=== PATIENT | female | born 1955 | race Caucasian/White ===

== ENCOUNTER → 2017-01-04 | Outpatient (CLI) | payer BC ==
--- NOTE | 2017-01-04 16:07 | BD ---
EXAMINATION TYPE: MG DEXA axial skeleton. DATE OF EXAM: 01/04/2017 8:37 AM CLINICAL HISTORY: 61-year-old female postmenopausal screening Height: 60.5 Weight: 160 FRAX RISK QUESTIONS: Alcohol (3 or more units per day): no Family History (Parent hip fracture): no Glucocorticoids (More than 3mos): no (Ex: prednisone, prednisolone, methylprednisolone, dexamethasone, and hydrocortisone). History of Fracture in Adulthood: no Secondary Osteoporosis: 1. Type 1 Diabetes: no 2. Hyperthyroidism: no 3. Menopause before 45: no 4. Malnutrition: no 5. Chronic liver disease: no Rheumatoid Arthritis: no Current Tobacco Use: no RISK FACTORS HISTORY OF: Family History of Osteoporosis: no Drink Alcohol: occasionally Active: yes Diet low in dairy products/other sources of calcium: no Postmenopausal woman: yes Take estrogen and/or progesterone medications: not now How long: Hormonal Contraceptives about 8 years; Estrogen starting age 49 for over 10 years..just re cently stopped Lost more than 2 inches in height since high school: no Frequent falls: no Poor Health: no Hyperparathyroidism: no Adrenal Insufficiency: no MEDICATIONS: Prednisone or other steroids: no Thyroid Medications: no Osteoporosis Medications: no EXAM MEASUREMENTS: Bone mineral densitometry was performed using the [employer] System. Bone mineral density as measured about the Lumbar spine is: ----- L1-L4(G/cm2): 1.077 T Score Values are as follows: ----- L2: -0.6 ----- L3: 0.5 ----- L4: -0.1 ----- L1-L4: -0.2 Bone mineral density BASELINE Bone mineral density about the R hip (g/cm2): 0.937 Bone mineral density about the L hip (g/cm2): 0.957 T Score values are as follows: -----R Neck: -0.7 -----L Neck: -0.6 -----R Intertrochanter: 0.2 -----L Intertrochanter: 0.5 Bone mineral density BASELINE IMPRESSION: Normal bone mineral density. Rescreen in 5 years. NOTE: T-SCORE=SD OF THE YOUNG ADULT MEAN.
--- NOTE | 2017-01-05 09:59 | MM ---
Reason for exam: screening (asymptomatic). Last mammogram was performed 1 year and 1 month ago. History: Patient is postmenopausal. Family history of premenopausal breast cancer in sister at age 44. Excisional biopsy of the right breast, October 2007. 2 implant removals of both breasts, 2004. Benign excisional biopsy of the right breast. Took hormonal contraceptives for 7 years beginning at age 17. Taking estrogen for 2 years beginning at age 49. Physical Findings: A clinical breast exam by your physician is recommended on an annual basis and results should be correlated with mammographic findings. MG Screening Mammo w CAD Bilateral CC and MLO view(s) were taken. Prior study comparison: December 07, 2015, bilateral MG screening mammo w CAD. February 27, 2015, left breast MG diagnostic mammo LT w CAD. The breast tissue is heterogeneously dense. This may lower the sensitivity of mammography. There is chronic nodularity bilaterally. There is no dominant lesion. No significant changes when compared with prior studies. ASSESSMENT: Benign, BI-RAD 2 RECOMMENDATION: Routine screening mammogram of both breasts in 1 year.
== END | disposition home or self-care (01) ==
LOC: RADMAMWWP 08:33
PROVIDERS: ATTEND Obstetrics & Gynecology
DX: Z12.31 Encounter for screening mammogram for malignant neoplasm of breast (principal); Z78.0 Asymptomatic menopausal state
CPT/HCPCS: 77080; G0202

== ENCOUNTER → 2018-02-12 | Outpatient (CLI) | payer BC ==
--- NOTE | 2018-02-13 10:15 | MM ---
Reason for exam: screening (asymptomatic). Last mammogram was performed 1 year and 1 month ago. History: Patient is postmenopausal. Family history of premenopausal breast cancer in sister at age 44. Excisional biopsy of the right breast, October 2007. 2 implant removals of both breasts, 2004. Benign excisional biopsy of the right breast. Took hormonal contraceptives for 7 years beginning at age 17. Taking estrogen for 2 years beginning at age 49. Physical Findings: A clinical breast exam by your physician is recommended on an annual basis and results should be correlated with mammographic findings. MG 3D Screening Mammo W/Cad Bilateral CC and MLO view(s) were taken. Prior study comparison: January 04, 2017, bilateral MG screening mammo w CAD. December 07, 2015, bilateral MG screening mammo w CAD. There are scattered fibroglandular densities. No significant changes when compared with prior studies. ASSESSMENT: Negative, BI-RAD 1 RECOMMENDATION: Routine screening mammogram of both breasts in 1 year.
== END | disposition home or self-care (01) ==
LOC: RADMAMWWP 07:42
PROVIDERS: ATTEND Obstetrics & Gynecology
DX: Z12.31 Encounter for screening mammogram for malignant neoplasm of breast (principal)
CPT/HCPCS: 77063; 77067

== ENCOUNTER → 2018-10-22 | Outpatient (CLI) | payer BC ==
[2018-10-22 13:39] LABS: HCT 45.7 % (34.0-46.0); HGB 15.2 gm/dL (11.4-16.0); MCH 31.2 pg (25.0-35.0); MCHC 33.3 g/dL (31.0-37.0); MCV 93.7 fL (80.0-100.0); Mean Platelet Volume 6.3; Platelet Count 263 k/uL (150-450); RBC 4.87 m/uL (3.80-5.40); RDW 13.1 % (11.5-15.5); WBC 7.6 k/uL (3.8-10.6)
[2018-10-22 14:48] LABS: Erythrocyte Sedimentation Rate 7 mm/hr (0-20)
[2018-10-22 17:55] LABS: ALT 31 U/L (8-44); AST 30 U/L (13-35); Albumin/Globulin Ratio 1.96 (1.20-2.10); Alkaline Phosphatase 70 U/L (41-126); C Reactive Protein <0.4 mg/dL (0.0-0.8); Calcium 9.9 mg/dL (8.7-10.3); Carbon Dioxide 23.8 mmol/L (21.6-31.8); Chloride 107 mmol/L (96-109); Globulin 2.3 g/dL (1.6-3.3); Glucose 93 mg/dL (70-110); Potassium 4.7 mmol/L (3.5-5.5); Sodium 139 mmol/L (135-145); Total Bilirubin 0.3 mg/dL (0.3-1.2); Total Protein 6.8 g/dL (6.2-8.2)
[2018-10-22 18:07] LABS: Gliadin AB IgA, Unit <0.2 U/mL
== END | disposition home or self-care (01) ==
LOC: LABWHC1 11:47
PROVIDERS: ATTEND Internal Medicine Gastroenterology
DX: K52.9 Noninfective gastroenteritis and colitis, unspecified (principal)
CPT/HCPCS: 36415; 80053; 83516; 85027; 85652; 86140

== ENCOUNTER 2018-10-31 10:37 | Day surgery (SDC) | payer BC ==
[2018-10-29 15:08] VITALS: BMI 32.8
[~2018-10-31 10:37] MED LIST: LACTATED RINGERS 1,000 ML IV SCH; LIDOCAINE 1% 20 ML VIAL (10MG/ML) FOR IV START INTRADERMA PRN
[2018-10-31 11:12] VITALS: RESP 16; TEMP 98.5
[2018-10-31] MEDS ORDERED: ONDANSETRON 4 MG/2 ML VIAL IVP ONE (11:25)
[2018-10-31] MEDS ORDERED: PROPOFOL 10 MG/ML 20 ML VIAL IV ONE (12:08)
[2018-10-31] MEDS ORDERED: fentaNYL (PF) 50 MCG/ML 2 ML AMP ONE (12:08)
[2018-10-31] MEDS ORDERED: MIDAZOLAM 2 MG/2 ML VIAL ONE (12:08)
--- NOTE | 2018-10-31 12:15 | P.PCN ---
Date of Procedure: 10/31/18 Procedure(s) Performed: Brief history: Patient is a pleasant 63-year-old pleasant white female, scheduled for an elective upper endoscopy as well as colonoscopy as a part of evaluation of abdominal pain and chronic diarrhea for the last 2 months duration. She has bowel movements anywhere from 8-10 a day which are loose to watery in consistency but no blood or mucus in the stool. Stool studies were negative. Procedure performed: Esophagogastroduodenoscopy with biopsy Colonoscopy with biopsy Preoperative diagnosis: Abdominal pain and chronic diarrhea Anesthesia: MAC Procedure: After informed consent was obtained from the patient was brought into the endoscopy unit and IV sedation was administered by anesthesia under continuous monitoring. Initially upper endoscopy was done. The Olympus GF 160 video endoscope was inserted inserted into the mouth and esophagus intubated without any difficulty and was gradually advanced into the stomach and duodenum and carefully examined. The bulb and second part of the duodenum appeared normal. Biopsies were done from the duodenum to rule out celiac disease. The scope was then withdrawn into the stomach adequately insufflated with air and upon careful examination the antrum had mild gastritis and biopsies were also done from this area. The body, cardia and fundus appeared normal. The scope was then withdrawn into the esophagus. The GE junction was located at 40 cm to the incisors. It appeared regular with no erythema erosions or ulcerations. Rest of the esophagus appeared normal. Patient tolerated the procedure well. At this time the patient continued to remain sedation. Initial digital rectal examination was normal. Olympus CF 160 video colonoscope was then inserted into the rectum and gradually advanced to the cecum without any difficulty. Careful examination was performed as the scope was gradually being withdrawn. The prep was excellent. The cecum, ascending colon, transverse colon, descending colon, sigmoid colon and rectum appeared normal. biopsies were done from ascending and ascending colon to rule out microscopic/collagenous colitis. Retroflexion was performed in the rectum and no lesions were noted. Patient tolerated the procedure well. Impression: 1. Upper endoscopy revealed mild gastritis and a small sliding Hiatal hernia. 2. Colonoscopy was within normal limits with no evidence of colitis or colorectal neoplasia. Recommendations: Findings of this examination were discussed with the patient as well as her family. She was advised to follow with the biopsy results and she'll be seen in office in 2 weeks.
[2018-10-31 13:01] VITALS: BP 123/82; PULSE 72
== END 2018-10-31 13:15 | disposition home or self-care (01) ==
LOC: ORWHC2ENDO 10:37
PROVIDERS: ATTEND Internal Medicine Gastroenterology
DX: K29.50 Unspecified chronic gastritis without bleeding (principal); K52.832 Lymphocytic colitis; K44.9 Diaphragmatic hernia without obstruction or gangrene; K57.90 Diverticulosis of intestine, part unspecified, without perforation or abscess without bleeding; F32.9 Major depressive disorder, single episode, unspecified; F41.9 Anxiety disorder, unspecified; Z79.899 Other long term (current) drug therapy
CPT/HCPCS: 88305; 45380; 43239; J2250; J2405; J3010; J2704

== ENCOUNTER → 2019-01-08 | Outpatient (CLI) | payer BC ==
--- NOTE | 2019-01-08 13:18 | XR ---
EXAMINATION TYPE: XR knee complete bilateral DATE OF EXAM: 01/08/2019 CLINICAL HISTORY: Bilateral knee and back pain TECHNIQUE: Three views of the both knees were obtained. COMPARISON: None. FINDINGS: There is no acute fracture/dislocation evident in either knee. The tri-compartment joint spaces appear to demonstrate very small marginal osteophytes. Very minimal medial tibial plateau scle rosis is seen bilaterally. No suprapatellar joint effusion within either knee. The overlying soft ti ssue appears unremarkable. IMPRESSION: There is no acute fracture or dislocation in the either knee. Mild tricompartmental arth rosis bilaterally.
--- NOTE | 2019-01-09 21:40 | MR ---
EXAMINATION TYPE: MR lumbar spine wo con DATE OF EXAM: 01/08/2019 COMPARISON: None HISTORY: Low back pain, M 54.16 radiculopathy, M 54.56 lumbar pain CONTRAST: 0 mL intravenous Gadavist. TECHNIQUE: Multiplanar, multisequence images of the lumbar spine were acquired. FINDINGS: L5-S1: There is mild disc bulging with anterior thecal sac contact. No spinal canal stenosis is prese nt. There is moderate left foraminal stenosis. L4-L5: No significant disc bulge or disc herniation. No spinal canal stenosis. Facet hypertrophy is present with posterior lateral thecal sac compression. L3-L4: No significant disc bulge or disc herniation. No spinal canal stenosis. No foraminal stenosi s. Without facet hypertrophy is present. L2-L3: No significant disc bulge or disc herniation. No spinal canal stenosis. No foraminal stenosi s. Mild facet hypertrophy is present. L1-L2: No significant disc bulge or disc herniation. No spinal canal stenosis. No foraminal stenosi s. T12-L1: No significant disc bulge or disc herniation. No spinal canal stenosis. No foraminal stenos is. Spinal cord terminates L1 level. Disc desiccation is present through the lumbar spine. IMPRESSION: 1. Facet hypertrophy with mild posterior lateral thecal sac compression L2-3 through L5-S1. This is g reatest at L4-5. 2. Mild disc bulging L5-S1 with minimal anterior thecal sac compression. 3. Left moderate foraminal stenosis due to disc bulging and facet hypertrophy at L5-S1. Correlate wit h the radicular symptoms.
== END | disposition home or self-care (01) ==
LOC: RADMRIMAIN 10:16
PROVIDERS: ATTEND Family Medicine
DX: M17.11 Unilateral primary osteoarthritis, right knee (principal); M17.12 Unilateral primary osteoarthritis, left knee; M48.07 Spinal stenosis, lumbosacral region; M51.17 Intervertebral disc disorders with radiculopathy, lumbosacral region; M46.97 Unspecified inflammatory spondylopathy, lumbosacral region
CPT/HCPCS: 72148

== ENCOUNTER → 2019-02-15 | Outpatient (CLI) | payer BC ==
--- NOTE | 2019-02-19 11:43 | MM ---
Reason for exam: screening (asymptomatic). Last mammogram was performed 1 year ago. History: Patient is postmenopausal. Family history of premenopausal breast cancer in sister at age 44. Excisional biopsy of the right breast, October 2007. 2 implant removals of both breasts, 2004. Benign excisional biopsy of the right breast. Took hormonal contraceptives for 7 years beginning at age 17. Taking estrogen for 2 years beginning at age 49. Physical Findings: A clinical breast exam by your physician is recommended on an annual basis and results should be correlated with mammographic findings. MG 3D Screening Mammo W/Cad Bilateral CC and MLO view(s) were taken. Prior study comparison: February 12, 2018, bilateral MG 3d screening mammo w/cad. January 04, 2017, bilateral MG screening mammo w CAD. The breast tissue is heterogeneously dense. This may lower the sensitivity of mammography. Finding #1: There is stable architectural distortion in the posterior position of the left breast consistent with known implant. Finding #2: There are typically benign round calcifications in both breasts. There is a chronic nodularity bilaterally. There is no discrete abnormality. ASSESSMENT: Benign, BI-RAD 2 RECOMMENDATION: Routine screening mammogram of both breasts in 1 year.
== END | disposition home or self-care (01) ==
LOC: RADMAMWWP 06:58
PROVIDERS: ATTEND Family Medicine
DX: Z12.31 Encounter for screening mammogram for malignant neoplasm of breast (principal)
CPT/HCPCS: 77063; 77067

== ENCOUNTER 2019-03-28 08:25 | Emergency (ER) | payer BC ==
[2019-03-28 08:35] VITALS: TEMP 97.7
[2019-03-28] MEDS ORDERED: SODIUM CHLORIDE 0.9% 1,000 ML IV STA (08:48)
[2019-03-28] MEDS ORDERED: ONDANSETRON 4 MG/2 ML VIAL IVP STA ×2 (08:48→10:10)
[2019-03-28] MEDS ORDERED: KETOROLAC 30 MG/ML 1 ML VIAL IVP STA (09:06)
[2019-03-28 09:18] LABS: WBC 9.9 k/uL (3.8-10.6)
[2019-03-28 09:19] LABS: Basophils # (A) 0.1 k/uL (0-0.2); Basophils % (A) 1 %; Eosinophils # (A) 0.1 k/uL (0-0.7); Eosinophils % (A) 1 %; HCT 46.5 % (34.0-46.0); HGB 16.1 gm/dL (11.4-16.0); Lymphocytes # (A) 2.6 k/uL (1.0-4.8); Lymphocytes % (A) 26 %; MCH 31.5 pg (25.0-35.0); MCHC 34.6 g/dL (31.0-37.0); Mean Platelet Volume 7.1; Monocytes # (A) 0.5 k/uL (0-1.0); Monocytes % (A) 5 %; Neutrophils # (A) 6.4 k/uL (1.3-7.7); Neutrophils % (A) 65 %; Platelet Count 309 k/uL (150-450); RBC 5.11 m/uL (3.80-5.40); RDW 14.6 % (11.5-15.5)
--- NOTE | 2019-03-28 09:29 | ED ---
Abdominal Pain HPI - General Chief Complaint: Abdominal Pain Stated Complaint: abdominal pain Time Seen by Provider: 03/28/19 08:48 Source: patient, RN notes reviewed Mode of arrival: ambulatory Limitations: no limitations - History of Present Illness Initial Comments: 62-year-old female presents emergency Department chief complaint of abdominal pain, nausea vomiting diarrhea. Patient states symptoms started 2 days ago. Patient states the pain is new and worsening. Patient states she does wax and wane primarily the right lower side. Patient had bowel resection due to diverticulitis in the past. Patient denies any fevers or chills. Patient den ies any sick contacts. Patient states that she has no problem urinating she denies any chest pain, shortness breath, headache or dizziness. She states when the pain is present nothing makes it feel better or worse. - Related Data Home Medications Medication Instructions Recorded Confirmed Estrogen,Velvet/Me-Testosterone 1 tab PO Q48H 01/10/15 03/28/19 [Estrogen-Methyltestos H.s. Tab] ALPRAZolam [Xanax] 0.5 mg PO BID PRN 01/26/15 03/28/19 L.acidoph,Paracasei, B.lactis 1 cap PO DAILY 10/29/18 03/28/19 [Probiotic] Multivit with Calcium,Iron,Min 1 tab PO DAILY 10/29/18 03/28/19 [Women's Multivitamin] Hope-3 Fatty Acids/Fish Oil [Fish 1 cap PO DAILY 10/29/18 03/28/19 Oil 1,000 mg Softgel] Sertraline [Zoloft] 100 mg PO DAILY 10/29/18 03/28/19 Butalb/APAP/Caff 50-325-40Mg 1 tab PO Q4H PRN 03/28/19 03/28/19 [Fioricet 50-325-40] Zolpidem [Ambien] 10 mg PO HS PRN 03/28/19 03/28/19 Previous Rx's Medication Instructions Recorded Hydrocodone/Acetaminophen [Addison 1 tab PO Q6HR PRN #12 tab 03/28/19 5-325] Ibuprofen [Motrin] 600 mg PO Q8HR PRN #30 tab 03/28/19 Ondansetron Odt [Zofran Odt] 4 mg PO Q8HR PRN #10 tab 03/28/19 Tamsulosin [Flomax] 0.4 mg PO DAILY #7 cap 03/28/19 Allergies Allergy/AdvReac Type Severity Reaction Status Date / Time No Known Allergies Allergy Verified 03/28/19 09:23 Review of Systems ROS Statement: Those systems with pertinent positive or pertinent negative responses have been documented in the HPI. ROS Other: All systems not noted in ROS Statement are negative. Past Medical History Past Medical History: Fibromyalgia Additional Past Medical History / Comment(s): frequent diarrhea since Aug. @least 20-25x/day History of Any Multi-Drug Resistant Organisms: None Reported Past Surgical History: Appendectomy, Bladder Surgery, Bowel Resection, Breast Surgery, Hysterectomy, Orthopedic Surgery, Tonsillectomy Additional Past Surgical History / Comment(s): arthroscopy right knee, breast implants & then removed, barby. foot surg. Past Anesthesia/Blood Transfusion Reactions: Postoperative Nausea & Vomiting (PONV) Past Psychological History: Anxiety Smoking Status: Former smoker Past Alcohol Use History: None Reported Past Drug Use History: None Reported - Past Family History Father Family Medical History: Cancer General Exam Limitations: no limitations General appearance: alert, in no apparent distress Head exam: Present: atraumatic, normocephalic, normal inspection Neck exam: Present: normal inspection, full ROM. Absent: tenderness, meningismus, lymphadenopathy Respiratory exam: Present: normal lung sounds bilaterally. Absent: respiratory distress, wheezes, rales, rhonchi, stridor Cardiovascular Exam: Present: regular rate, normal rhythm, normal heart sounds. Absent: systolic murmur, diastolic murmur, rubs, gallop, clicks GI/Abdominal exam: Present: soft, tenderness (Mild diffuse with moderate right lower), normal bowel sounds. Absent: distended, guarding, rebound, rigid Back exam: Absent: CVA tenderness (R), CVA tenderness (L) Neurological exam: Present: alert, oriented X3, CN II-XII intact Skin exam: Present: warm, dry, intact, normal color. Absent: rash Course Vital Signs 03/28/19 08:33 Temperature 97.7 F Pulse Rate 71 Respiratory 16 Rate Blood Pressure 176/101 O2 Sat by Pulse 96 Oximetry Medical Decision Making - Medical Decision Making 63-year-old female presented for abdominal pain, right flank pain. Patient's found to have 3 mm UVJ stone. Patient improved at IV fluids and pain meds. Patient will be discharged this time return parameters were discussed. - Lab Data Result diagrams: 03/28/19 09:00 03/28/19 09:00 Lab Results 03/28/19 03/28/19 03/28/19 Range/Units 09:00 09:00 09:00 WBC 9.9 (3.8-10.6) k/uL RBC 5.11 (3.80-5.40) m/uL Hgb 16.1 H (11.4-16.0) gm/dL Hct 46.5 H (34.0-46.0) % MCV 91.0 (80.0-100.0) fL MCH 31.5 (25.0-35.0) pg MCHC 34.6 (31.0-37.0) g/dL RDW 14.6 (11.5-15.5) % Plt Count 309 (150-450) k/uL Neutrophils % 65 % Lymphocytes % 26 % Monocytes % 5 % Eosinophils % 1 % Basophils % 1 % Neutrophils # 6.4 (1.3-7.7) k/uL Lymphocytes # 2.6 (1.0-4.8) k/uL Monocytes # 0.5 (0-1.0) k/uL Eosinophils # 0.1 (0-0.7) k/uL Basophils # 0.1 (0-0.2) k/uL Sodium 141 (137-145) mmol/L Potassium 4.1 (3.5-5.1) mmol/L Chloride 107 (98-107) mmol/L Carbon Dioxide 21 L (22-30) mmol/L Anion Gap 13 mmol/L BUN 18 H (7-17) mg/dL Creatinine 1.07 H (0.52-1.04) mg/dL Est GFR (CKD-EPI)AfAm 64 (>60 ml/min/1.73 sqM) Est GFR (CKD-EPI)NonAf 56 (>60 ml/min/1.73 sqM) Glucose 124 H (74-99) mg/dL Plasma Lactic Acid Cameron 1.6 (0.7-2.0) mmol/L Calcium 10.3 H (8.4-10.2) mg/dL Total Bilirubin 0.6 (0.2-1.3) mg/dL AST 30 (14-36) U/L ALT 27 (9-52) U/L Alkaline Phosphatase 77 (38-126) U/L Total Protein 8.0 (6.3-8.2) g/dL Albumin 4.9 (3.5-5.0) g/dL Amylase 85 (30-110) U/L Lipase 70 (23-300) U/L Urine Color Urine Appearance (Clear) Urine pH (5.0-8.0) Ur Specific [place] (1.001-1.035) Urine Protein (Negative) Urine Glucose (UA) (Negative) Urine Ketones (Negative) Urine Blood (Negative) Urine Nitrite (Negative) Urine Bilirubin (Negative) Urine Urobilinogen (<2.0) mg/dL Ur Leukocyte Esterase (Negative) Urine RBC (0-5) /hpf Urine WBC (0-5) /hpf Ur Squamous Epith Cells (0-4) /hpf Calcium Oxalate Crystal (None) /hpf Urine Bacteria (None) /hpf Urine Mucus (None) /hpf 03/28/19 Range/Units 11:23 WBC (3.8-10.6) k/uL RBC (3.80-5.40) m/uL Hgb (11.4-16.0) gm/dL Hct (34.0-46.0) % MCV (80.0-100.0) fL MCH (25.0-35.0) pg MCHC (31.0-37.0) g/dL RDW (11.5-15.5) % Plt Count (150-450) k/uL Neutrophils % % Lymphocytes % % Monocytes % % Eosinophils % % Basophils % % Neutrophils # (1.3-7.7) k/uL Lymphocytes # (1.0-4.8) k/uL Monocytes # (0-1.0) k/uL Eosinophils # (0-0.7) k/uL Basophils # (0-0.2) k/uL Sodium (137-145) mmol/L Potassium (3.5-5.1) mmol/L Chloride (98-107) mmol/L Carbon Dioxide (22-30) mmol/L Anion Gap mmol/L BUN (7-17) mg/dL Creatinine (0.52-1.04) mg/dL Est GFR (CKD-EPI)AfAm (>60 ml/min/1.73 sqM) Est GFR (CKD-EPI)NonAf (>60 ml/min/1.73 sqM) Glucose (74-99) mg/dL Plasma Lactic Acid Cameron (0.7-2.0) mmol/L Calcium (8.4-10.2) mg/dL Total Bilirubin (0.2-1.3) mg/dL AST (14-36) U/L ALT (9-52) U/L Alkaline Phosphatase (38-126) U/L Total Protein (6.3-8.2) g/dL Albumin (3.5-5.0) g/dL Amylase (30-110) U/L Lipase (23-300) U/L Urine Color Yellow Urine Appearance Cloudy H (Clear) Urine pH 5.5 (5.0-8.0) Ur Specific [place] 1.037 H (1.001-1.035) Urine Protein Trace H (Negative) Urine Glucose (UA) Negative (Negative) Urine Ketones 1+ H (Negative) Urine Blood Moderate H (Negative) Urine Nitrite Negative (Negative) Urine Bilirubin Negative (Negative) Urine Urobilinogen <2.0 (<2.0) mg/dL Ur Leukocyte Esterase Negative (Negative) Urine RBC 58 H (0-5) /hpf Urine WBC 5 (0-5) /hpf Ur Squamous Epith Cells 12 H (0-4) /hpf Calcium Oxalate Crystal Occasional H (None) /hpf Urine Bacteria Rare H (None) /hpf Urine Mucus Moderate H (None) /hpf Disposition Clinical Impression: Ureteral calculi, Nausea & vomiting Disposition: HOME SELF-CARE Condition: Stable Instructions (If sedation given, give patient instructions): Kidney Stones (ED) Additional Instructions: Please return to the Emergency Department if symptoms worsen or any other concerns. Prescriptions: Tamsulosin [Flomax] 0.4 mg PO DAILY #7 cap Ibuprofen [Motrin] 600 mg PO Q8HR PRN #30 tab PRN Reason: Pain Hydrocodone/Acetaminophen [Addison 5-325] 1 tab PO Q6HR PRN #12 tab PRN Reason: Pain Ondansetron Odt [Zofran Odt] 4 mg PO Q8HR PRN #10 tab PRN Reason: Nausea Is patient prescribed a controlled substance at d/c from ED?: Yes When asked, does pt state using other controlled substances?: No If prescribed controlled substance>3 days was MAPS reviewed?: Prescribed <3 Days If opioid is for acute pain is fill amount 7 days or less?: Yes If Rx opioid, was Start Talking consent form obtained?: Yes Referrals: Ken Rosario DO [Primary Care Provider] - 1-2 days Time of Disposition: 11:54
[2019-03-28 09:34] LABS: Albumin 4.9 g/dL (3.5-5.0); Calcium 10.3 mg/dL (8.4-10.2); Potassium 4.1 mmol/L (3.5-5.1); Total Bilirubin 0.6 mg/dL (0.2-1.3)
[2019-03-28] MEDS ORDERED: MORPHINE SULFATE 4 MG/ML SYRINGE IVP STA (10:09)
--- NOTE | 2019-03-28 10:17 | CT ---
EXAMINATION TYPE: CT abdomen pelvis w con DATE OF EXAM: 03/28/2019 COMPARISON: 06/18/2012 HISTORY: Mid abd pain, history of diverticulitis CT DLP: 813.7 mGycm Automated exposure control for dose reduction was used. CONTRAST: CT scan of the abdomen pelvis is performed with IV Contrast, patient injected with 100 mL of Isovue 3 00. FINDINGS- LUNG BASES-subsegmental consolidation involving both lung bases. Interlobular septal thickening sugge st chronic interstitial lung disease. LIVER/GB- No gross abnormality is appreciated. PANCREAS- No gross abnormality is seen. SPLEEN- No gross abnormality is seen. ADRENALS- No gross abnormality is seen. KIDNEYS/BLADDER-there is moderate right-sided hydronephrosis and hydroureter with perinephric and per iureteral edema. There is a 3 mm calcification within the lower pelvis several centimeters above the UVJ. There is a punctate 1 mm additional right upper pole renal calculus. There are approximately 4 calculi on the left the largest seen involving the lower pole within a post erior calyx measuring 4.7 mm. BOWEL-bowel gas pattern nonspecific. Suggestion of possible previous surgery in the rectosigmoid junc tion. Changes of diverticulosis are noted.. Small hiatal hernia. LYMPH NODES- No greater than 1cm abdominal or pelvic lymph nodes areappreciated. OSSEOUS STRUCTURES-hypertrophic and degenerative change of the spine. OTHER- atherosclerotic change of the aorta. No evidence of aneurysm. Correlate for previous hysterec dee dee. IMPRESSION- 1. Moderate right hydronephrosis and hydroureter to the level of the distal pelvis where there is a 3 mm obstructing distal ureteral calculus several centimeters above the UVJ. 2. Nonobstructing left nephrolithiasis 3. Additional punctate 1 mm right upper pole renal calculus 4. Diverticulosis. There is a focal area reduced caliber involving the distal margin of the transvers e colon. This may be related to incomplete peristalsis and lack of distention. Recommend correlation clinically and colonoscopy as clinically warranted to exclude mucosal lesion. 5. Correlate for chronic interstitial lung disease.
[2019-03-28] MEDS ORDERED: SODIUM CHLORIDE 0.9% 1,000 ML IV ONE (11:14)
[2019-03-28 11:37] LABS: Appearance,Urine Cloudy (Clear); Bacteria,Urine Rare /hpf; Bilirubin,Urine Negative (Negative); Blood,Urine Moderate (Negative); Calcium Oxalate Crystals,Urine Occasional /hpf; Color,Urine Yellow; Glucose,Urine (UA) Negative (Negative); Ketones,Urine 1+ (Negative); Leukocyte Esterase,Urine Negative (Negative); Mucus,Urine Moderate /hpf; Nitrite,Urine Negative (Negative); PH, Urine 5.5 (5.0-8.0); Protein,Urine Trace (Negative); RBC,Urine 58 /hpf (0-5); Specific Gravity,Urine 1.037 (1.001-1.035); Squamous Epithelial Cell,Urine 12 /hpf (0-4); Urobilinogen,Urine <2.0 mg/dL (<2.0)
[2019-03-28 12:18] VITALS: BP 128/78; PULSE 70; RESP 18
== END 2019-03-28 12:18 | disposition home or self-care (01) ==
LOC: EC 08:25
DX: N20.1 Calculus of ureter (principal); F41.9 Anxiety disorder, unspecified; Z87.19 Personal history of other diseases of the digestive system; Z87.891 Personal history of nicotine dependence; Z90.49 Acquired absence of other specified parts of digestive tract; Z98.890 Other specified postprocedural states; Z90.710 Acquired absence of both cervix and uterus; Z79.890 Hormone replacement therapy; Z79.899 Other long term (current) drug therapy
CPT/HCPCS: 36415; 80053; 82150; 83605; 83690; 85025; 81001; 74177; 99284; 96374; 96375 ×2; 96376; 96361 ×2; J2270; J2405; J1885; Q9967

== ENCOUNTER → 2019-08-27 | Outpatient (CLI) | payer BC ==
[2019-08-27 11:04] LABS: Potassium 4.6 mmol/L (3.5-5.1)
[2019-08-27 11:16] LABS: Basophils # (A) 0.1 k/uL (0-0.2); Basophils % (A) 1 %; Eosinophils # (A) 0.1 k/uL (0-0.7); Eosinophils % (A) 1 %; HGB 15.4 gm/dL (11.4-16.0); Lymphocytes % (A) 31 %; MCH 30.4 pg (25.0-35.0); MCHC 32.1 g/dL (31.0-37.0); MCV 94.7 fL (80.0-100.0); Mean Platelet Volume 6.4; Monocytes # (A) 0.5 k/uL (0-1.0); Monocytes % (A) 7 %; Neutrophils # (A) 3.7 k/uL (1.3-7.7); Neutrophils % (A) 57 %; Platelet Count 276 k/uL (150-450); RBC 5.07 m/uL (3.80-5.40); RDW 12.7 % (11.5-15.5); WBC 6.5 k/uL (3.8-10.6)
== END | disposition home or self-care (01) ==
LOC: LABPAT 09:46
PROVIDERS: ATTEND Urology
DX: Z01.812 Encounter for preprocedural laboratory examination (principal); N20.0 Calculus of kidney
CPT/HCPCS: 36415; 80051; 82565; 84520; 85025

== ENCOUNTER 2019-09-09 05:44 | Day surgery (SDC) | payer BC ==
--- NOTE | 2019-09-08 17:54 | P.HPIHPCON ---
History of Present Illness H&P Date: 09/09/19 Chief Complaint: left renal calculi Ms Chin is 63 yo female with hx of recurrent renal calculi. She was recently seen for a 3mm right sided uvj stone that she passed spontaneously, patient had the seen stone pass when she was straining. She also has hx of left sided 5 mm left lower pole stone. She is asymptomatic on the left side at this time. I discussed option with her of observation vs ESWL vs Ureteroscopy. She agreed to proceed with ESWL. I discussed the risk of benefit of ESWL. discussed risk of bleeding, infection and renal hematoma. Also discussed risk from anesthesia with her Consent for Procedure: I have explained the operation/procedure to the patient, including the risks, benefits, side effects, alternative therapies (including not receiving the proposed treatment or service), the likelihood of the patient achieving his/her goals, and potential recuperation problems for the procedure/sedation/analgesia, as well as any blood products, if indicated. I also explained to the patient the risks, benefits and side effects of the alternatives, as well as the risks related to not receiving the proposed procedure, care, treatment, or services. - Constitutional Constitutional: Denies chills, Denies fever - Cardiovascular Cardiovascular: Denies chest pain, Denies dyspnea on exertion - Respiratory Respiratory: Denies cough, Denies dyspnea Past Medical History Past Medical History: Fibromyalgia Additional Past Medical History / Comment(s): COLITIS, HX OF DIVERTICULITIS., HERNIATED DISCS WITH BACK PAIN, KIDNEY STONES. History of Any Multi-Drug Resistant Organisms: None Reported Past Surgical History: Appendectomy, Bladder Surgery, Bowel Resection, Breast Surgery, Hysterectomy, Orthopedic Surgery, Tonsillectomy Additional Past Surgical History / Comment(s): arthroscopy right knee, breast implants & then removed, barby. foot surg., Bowel Resection due to diverticulitis. Past Anesthesia/Blood Transfusion Reactions: Postoperative Nausea & Vomiting (PONV) Past Psychological History: Anxiety Smoking Status: Former smoker Past Alcohol Use History: None Reported Additional Past Alcohol Use History / Comment(s): quit smoking 18 yrs. ago, smoked <ppd for 15 yrs. Past Drug Use History: Marijuana - Past Family History Father Family Medical History: Cancer Medications and Allergies Home Medications Medication Instructions Recorded Confirmed Type ALPRAZolam [Xanax] 0.5 mg PO BID PRN 01/26/15 09/06/19 History L.acidoph,Paracasei, B.lactis 1 cap PO DAILY 10/29/18 09/06/19 History [Probiotic] Sertraline [Zoloft] 100 mg PO DAILY 10/29/18 09/06/19 History Elderberry (Unknown Dose) 1 tab PO DAILY 09/06/19 History Estrogen (Unknown Dose) 1 tab PO DAILY 09/06/19 History Allergies Allergy/AdvReac Type Severity Reaction Status Date / Time No Known Allergies Allergy Verified 09/06/19 08:05 Surgical - Exam - General well developed, well nourished, no distress, no pain - Respiratory normal expansion, normal respiratory effort - Abdomen Abdomen: soft, non tender - Psychiatric oriented to time, oriented to person, oriented to place Assessment and Plan Assessment: 63 yo with 5mm left lower pole stone -OR for Left ESWL
[~2019-09-09 05:44] MED LIST changes: +HYDROmorphone 0.5 MG/0.5 ML SYRINGE IVP PRN; +ONDANSETRON 4 MG/2 ML VIAL IVP PRN
[2019-09-09 06:22] VITALS: RESP 16; TEMP 98.2
--- NOTE | 2019-09-09 07:14 | XR ---
EXAMINATION TYPE: XR KUB DATE OF EXAM: 09/09/2019 5:57 AM CLINICAL HISTORY: Lithotripsy TECHNIQUE: Single supine KUB image of the abdomen is obtained. COMPARISON: CT dated 03/28/2019. FINDINGS: Numerous phleboliths are seen within the pelvis. A calculus would be inseparable from the n umerous phleboliths. There are at least 3 left renal calculi overlying the renal shadow measuring up to 9 mm. No dilated large or small bowel. No calculi are identified along the course of the ureters. Surgical sutures in the low pelvis are seen. Osseous structures are intact. IMPRESSION: Calculi overlying the left renal shadow measuring 9 mm and numerous phleboliths in the pe lvis. The distal right ureteral calculus is seen on the prior CT of 03/28/2019 would be inseparable fro m the phleboliths on x-ray. No calculi are seen along the courses of the ureters.
[2019-09-09] MEDS ORDERED: MIDAZOLAM 2 MG/2 ML VIAL ONE (07:37)
[2019-09-09] MEDS ORDERED: LIDOCAINE 1% INJ 10MG/ML (20 ML MDV) ONE (07:37)
[2019-09-09] MEDS ORDERED: PROPOFOL 10 MG/ML 20 ML VIAL IV ONE (07:37)
[2019-09-09] MEDS ORDERED: fentaNYL (PF) 50 MCG/ML 2 ML AMP ONE (07:37)
[2019-09-09] MEDS ORDERED: SODIUM CHLORIDE 0.9% 500 ML 500 ML IV ONE (08:10)
--- NOTE | 2019-09-09 08:27 | P.OP ---
Date of Procedure: 09/09/19 Preoperative Diagnosis: Left renal calculus Postoperative Diagnosis: Same Procedure(s) Performed: Left extracorporal shockwave lithotripsy (ESWL) Anesthesia: MAC Surgeon: Talon Diaz Estimated Blood Loss (ml): 0 IV fluids (ml): 500 Pathology: none sent Condition: stable Disposition: PACU Indications for Procedure: The patient is a 63-year-old white female with recurrent urolithiasis. She has elected to undergo ESWL to treat an 8 mm left upper pole renal calculus. Operative Findings: The calculus fragments well. Description of Procedure: The patient was taken to the operating room and placed on the [email or web address] Delta II lithotripter in the supine position. The [calculus was][calculi were] seen on biplanar fluoroscopy. Once the patient was properly positioned and sedated, lithotripsy was performed. The energy level was gradually increased per protocol, to an energy level of 5. After 200 shocks were administered, a 2 minute pause was instituted per protocol. A total of 2500 shocks were given at a rate of 80 shocks per minute. Fluoroscopy was utilized at a minimum to ensure proper positioning and determine the treatment status. The calculus changed in appearance, consistent with fragmentation. The patient tolerated the procedure well was taken to the recovery room in stable condition. Instructions were given to strain the urine, and the patient will follow-up within one week.
[2019-09-09 08:46] VITALS: BP 114/73; PULSE 58
== END 2019-09-09 09:24 | disposition home or self-care (01) ==
LOC: ORWHC2ENDO 05:44
PROVIDERS: ATTEND Urology
DX: N20.0 Calculus of kidney (principal); M79.7 Fibromyalgia; F41.9 Anxiety disorder, unspecified; I25.10 Atherosclerotic heart disease of native coronary artery without angina pectoris; F32.9 Major depressive disorder, single episode, unspecified; K08.89 Other specified disorders of teeth and supporting structures; Z87.19 Personal history of other diseases of the digestive system; Z87.39 Personal history of other diseases of the musculoskeletal system and connective tissue; Z90.49 Acquired absence of other specified parts of digestive tract; Z98.890 Other specified postprocedural states; Z90.710 Acquired absence of both cervix and uterus; Z90.89 Acquired absence of other organs; Z91.89 Other specified personal risk factors, not elsewhere classified; Z87.891 Personal history of nicotine dependence; Z79.899 Other long term (current) drug therapy; Z79.818 Long term (current) use of other agents affecting estrogen receptors and estrogen levels; Z80.9 Family history of malignant neoplasm, unspecified
CPT/HCPCS: 74018; 50590; J2250; J2405; J2001; J3010; J2704

== ENCOUNTER → 2019-09-13 | Outpatient (CLI) | payer BC ==
--- NOTE | 2019-09-13 10:13 | XR ---
EXAMINATION TYPE: XR KUB DATE OF EXAM: 09/13/2019 HISTORY: Pain Comparison: None.Single KUB is submitted for interpretation. Findings: Right renal calculi: There is limited visualization of the right kidney given overlying bowel content . No obvious nephrolithiasis is identified. Right ureteral calculi: None Visualized. Left renal calculi: Previously noted 9 mm calculus upper pole left kidney is not redemonstrated at t his time. There are small 2 mm calculi within the mid to lower pole of the left kidney. Left ureteral calculi: None Visualized. Pelvic calcifications: Innumerable pelvic calcifications are noted felt to be reflective of phleboli th formation. Bowel gas pattern is unremarkable. No free air. No mass effects. IMPRESSION: 1. Left-sided nephrolithiasis as discussed above.
== END | disposition home or self-care (01) ==
LOC: RADXRMAIN 08:51
PROVIDERS: ATTEND Urology
DX: N20.0 Calculus of kidney (principal)
CPT/HCPCS: 74018

== ENCOUNTER → 2020-02-14 | Outpatient (CLI) | payer BC ==
[2020-02-14 12:32] LABS: Basophils # (A) 0.1 k/uL (0-0.2); Basophils % (A) 1 %; Eosinophils # (A) 0.1 k/uL (0-0.7); Eosinophils % (A) 1 %; HCT 46.6 % (34.0-46.0); Lymphocytes # (A) 2.2 k/uL (1.0-4.8); Lymphocytes % (A) 35 %; MCH 30.2 pg (25.0-35.0); MCHC 32.2 g/dL (31.0-37.0); MCV 93.7 fL (80.0-100.0); Monocytes # (A) 0.4 k/uL (0-1.0); Monocytes % (A) 6 %; Neutrophils # (A) 3.5 k/uL (1.3-7.7); Neutrophils % (A) 55 %; Platelet Count 245 k/uL (150-450); RBC 4.98 m/uL (3.80-5.40); RDW 12.6 % (11.5-15.5); WBC 6.3 k/uL (3.8-10.6)
[2020-02-14 13:25] LABS: Erythrocyte Sedimentation Rate 8 mm/hr (0-20)
[2020-02-14 20:27] LABS: ALT 25 U/L (8-44); AST 32 U/L (13-35); African American GFR (CKD) 61.4 (60.0-200.0); Albumin/Globulin Ratio 1.79 (1.60-3.17); Alkaline Phosphatase 66 U/L (41-126); BUN/Creat Ratio 14.55 Ratio (12.00-20.00); C Reactive Protein <0.4 mg/dL (0.0-0.8); Calcium 9.9 mg/dL (8.7-10.3); Carbon Dioxide 25.9 mmol/L (21.6-31.8); Chloride 108 mmol/L (96-109); Creatine Kinase 262 U/L (26-186); Globulin 2.4 g/dL (1.6-3.3); Glucose 93 mg/dL (70-110); Phosphorus 3.6 mg/dL (2.4-5.1); Potassium 4.6 mmol/L (3.5-5.5); Rheumatoid Factor, Qnt 8 IU/mL (0-15); Sodium 144 mmol/L (135-145); Total Bilirubin 0.4 mg/dL (0.3-1.2); Total Protein 6.7 g/dL (6.2-8.2)
== END | disposition home or self-care (01) ==
LOC: LABWHC1 11:06
PROVIDERS: ATTEND Internal Medicine Critical Care Medicine
DX: R05 Cough (principal); Z87.442 Personal history of urinary calculi
CPT/HCPCS: 36415; 80053; 82164; 82550; 83970; 84100; 85025; 85652; 86001; 86038; 86140; 86431; 86606; 86609

== ENCOUNTER → 2020-04-21 | Outpatient (CLI) | payer BC ==
--- NOTE | 2020-04-21 15:51 | CT ---
EXAMINATION TYPE: CT chest wo con DATE OF EXAM: 04/21/2020 COMPARISON: Chest x-ray 02/14/2020 HISTORY: Chronic cough. CT DLP: 491.9 mGycm. Automated Exposure Control for Dose Reduction was Utilized. TECHNIQUE: CT scan of the thorax is performed without IV contrast with high-resolution algorithm in a limited fashion to the lungs in supine and prone positions. FINDINGS: LUNGS: The lungs are remarkable for interlobular septal pleural thickening bilaterally. Some basilar honeycombing is present bilaterally. Some thickened parenchymal bands are present at the lung bases. No significant bronchiectasis.. There is no pleural effusion or pneumothorax seen. The tracheobron chial tree is patent. MEDIASTINUM: Lack of IV contrast is noted to limit evaluation for mediastinal and especially hilar ad enopathy. There are no definitive greater than 1 cm hilar or mediastinal lymph nodes. No cardiomega ly or pericardial effusion is seen. OTHER: No additional significant abnormality is seen. IMPRESSION: Idiopathic pulmonary fibrosis
== END | disposition home or self-care (01) ==
LOC: RADCTMAIN 13:53
PROVIDERS: ATTEND Internal Medicine Critical Care Medicine
DX: J84.112 Idiopathic pulmonary fibrosis (principal)
CPT/HCPCS: 71250

== ENCOUNTER → 2020-06-19 | Outpatient (CLI) | payer BC | END | disposition home or self-care (01) | LOC: CPPFTMAIN 08:43 | PROVIDERS: ATTEND Internal Medicine Critical Care Medicine | DX: J84.112 Idiopathic pulmonary fibrosis (principal) | CPT/HCPCS: 94060; 94726; 94729 ==

== ENCOUNTER → 2020-12-01 | Outpatient (CLI) | payer BC ==
--- NOTE | 2020-12-01 11:54 | MM ---
Reason for exam: screening (asymptomatic). Last mammogram was performed 1 year and 10 months ago. History: Patient is postmenopausal. Family history of premenopausal breast cancer in sister at age 44. Excisional biopsy of the right breast, October 2007. 2 implant removals of both breasts, 2004. Benign excisional biopsy of the right breast. Took hormonal contraceptives for 7 years beginning at age 17. Taking estrogen for 2 years beginning at age 49. Physical Findings: A clinical breast exam by your physician is recommended on an annual basis and results should be correlated with mammographic findings. MG 3D Screening Mammo W/Cad Bilateral CC and MLO view(s) were taken. Prior study comparison: February 15, 2019, bilateral MG 3d screening mammo w/cad. February 12, 2018, bilateral MG 3d screening mammo w/cad. The breast tissue is heterogeneously dense. This may lower the sensitivity of mammography. There are benign appearing round calcifications bilaterally. There is no discrete abnormality. ASSESSMENT: Benign, BI-RAD 2 RECOMMENDATION: Routine screening mammogram of both breasts in 1 year.
== END ==
LOC: RADMAMWWP 07:20
PROVIDERS: ATTEND Family Medicine
DX: Z12.31 Encounter for screening mammogram for malignant neoplasm of breast (principal); Z80.3 Family history of malignant neoplasm of breast; Z78.0 Asymptomatic menopausal state
CPT/HCPCS: 77063; 77067

== ENCOUNTER → 2021-02-02 | Outpatient (CLI) | payer BC ==
--- NOTE | 2021-02-02 21:13 | CT ---
EXAMINATION TYPE: CT chest wo con DATE OF EXAM: 02/02/2021 COMPARISON: 04/21/2020 HISTORY: pulmonary fibrosis CT DLP: 168 mGycm, Automated exposure control for dose reduction was used. CONTRAST: None TECHNIQUE: Axial images were obtained at 1 mm thick sections at 10 mm intervals. This will limit po rtions of the examination which may not be visualized within the [id number]. Images were obtained in the prone and supine views. FINDINGS: Portion of the thyroid visualized is normal. No suspicious lung nodules or focal infiltrat es are present. No bronchiectasis is evident. There are scattered areas of pneumonitis which are nons pecific. There are some changes at the lung bases compatible with pulmonary fibrosis. No significant change between prone and supine imaging is evident. Pulmonary fibrosis appears progressive. No enlarged mediastinal or hilar adenopathy is evident. The ascending aorta diameter at the level o f the main pulmonary artery is 3.2 cm. The main pulmonary artery diameter at the bifurcation is 2.[address] sections are obtained through the upper abdomen. Abdomen is essentially unremarkable. IMPRESSIONS: 1. Appears to be progressive bilateral lung base pulmonary fibrosis. 2. Few small scattered areas of pneumonitis which is nonspecific. This could be related to some early pulmonary fibrosis.
== END | disposition home or self-care (01) ==
LOC: RADCTMAIN 12:27
PROVIDERS: ATTEND Internal Medicine Critical Care Medicine
DX: J18.9 Pneumonia, unspecified organism (principal); J84.10 Pulmonary fibrosis, unspecified
CPT/HCPCS: 71250

== ENCOUNTER → 2022-02-07 | Outpatient (CLI) | payer BC ==
--- NOTE | 2022-02-07 09:04 | CT ---
EXAMINATION TYPE: CT chest wo con DATE OF EXAM: 02/07/2022 COMPARISON: HRCT 02/02/2021 HISTORY: 66-year-old female J84.112, Idiopathic Pulmonary Fibrosis TECHNIQUE: Contiguous axial scanning of the chest without IV contrast. Coronal and sagittal reconstru ctions performed. CT DLP: 264.0 mGycm Automated exposure control for dose reduction was used. FINDINGS: Heart upper limits of normal in size without pericardial effusion. Aorta normal caliber with conventional arch vessel branching anatomy. Large caliber to the main right and left pulmonary arteries measuring up to 2.8 cm suggesting underly ing pulmonary hypertension. No thoracic lymphadenopathy. Mild biapical pleural parenchymal scarring. Scattered mild subpleural interstitial thickening. Mild patchy subpleural reticular groundglass and interstitial change posteriorly at the mid lung and at the lung bases. Mild patchy groundglass in the basilar lower lobes and associated reticular change and mild traction bronchiolectasis Tiny hiatal hernia. Visualized upper abdomen is motion limited wi thout gross abnormality. Bones: Levoconvex curvature along the visualized upper lumbar spine. Scattered mild degenerative disc disease. IMPRESSION: 1. REDEMONSTRATED MID AND LOWER LUNG SUBPLEURAL INTERSTITIAL CHANGE ESPECIALLY POSTERIORLY AND AT THE BASILAR LOWER LOBES. THERE IS ALSO SOME ASSOCIATED TRACTION BRONCHIOLECTASIS REDEMONSTRATED. MILD PA TCHY GROUNDGLASS CHANGES IN THE BASILAR LOWER LOBES SHOWS SLIGHT PROGRESSION FROM 02/02/2021. CONSIDER NSIP, INCLUDING THE FIBROTIC FORM, OR EARLY UIP. 2. PULMONARY ARTERIAL HYPERTENSION.
== END | disposition home or self-care (01) ==
LOC: RADCTMAIN 06:23
PROVIDERS: ATTEND Internal Medicine Critical Care Medicine
DX: J47.9 Bronchiectasis, uncomplicated (principal); I27.21 Secondary pulmonary arterial hypertension
CPT/HCPCS: 71250

== ENCOUNTER → 2022-08-22 | Outpatient (CLI) | payer BC, MEDICARE ==
--- NOTE | 2022-08-22 13:31 | CT ---
EXAMINATION TYPE: CT chest wo con DATE OF EXAM: 08/22/2022 COMPARISON: 02/07/2022 HISTORY: f/u fibrosis CT DLP: 795.1 mGycm, Automated exposure control for dose reduction was used. CONTRAST: None TECHNIQUE: Axial images were obtained at 1 mm thick sections at 10 mm intervals. This will limit po rtions of the examination which may not be visualized within the [id number]. Images were obtained in the prone and supine views. FINDINGS: Portion of the thyroid visualized is normal. There is mild increased lung markings in the periphery of the dependent lung bases bilaterally. This appears slightly improved on prone versus supine imaging suggesting some underlying atelectasis. Some bronchiectasis appears to be present in the posterior lung bases bilaterally. No enlarged mediastinal or hilar adenopathy is evident. A few scattered small lymph nodes are present . The ascending aorta diameter at the level of the main pulmonary artery is 3.2 cm. The main pulmonary artery diameter at the bifurcation is 2.[address] sections are obtained through the upper abdomen. Nonobstructing 5 mm superior pole left re nal stone is present. Abdomen is otherwise essentially unremarkable. IMPRESSIONS: 1. Increased posterior inferior lung markings are nonspecific but can be related to pulmonary fibrosi s. Some additional mild atelectasis may be present in the supine image. 2. Mild bronchiectasis lower lung bases.
== END | disposition home or self-care (01) ==
LOC: RADCTMAIN 12:43
PROVIDERS: ATTEND Internal Medicine Critical Care Medicine
DX: J84.112 Idiopathic pulmonary fibrosis (principal); J47.9 Bronchiectasis, uncomplicated
CPT/HCPCS: 71250

== ENCOUNTER 2022-10-17 07:43 | Emergency (ER) | payer BC, MEDICARE ==
[2022-10-17 07:53] VITALS: TEMP 98.2
[2022-10-17] MEDS ORDERED: SODIUM CHLORIDE 0.9% 500 ML 500 ML IV STA (08:01)
[2022-10-17] MEDS ORDERED: KETOROLAC 15 MG/ML 1 ML VIAL IVP STA (08:01)
--- NOTE | 2022-10-17 08:07 | ED ---
General Adult HPI - General Chief complaint: Back Pain/Injury Stated complaint: back pain Time Seen by Provider: 10/17/22 07:54 Source: patient, RN notes reviewed, old records reviewed Mode of arrival: ambulatory Limitations: no limitations - History of Present Illness Initial comments: This is a nontoxic appearing 67-year-old female that presents with complaints of left flank pain since Monday. Denies any injury. States that she was sitting when the pain came on. Denies any fevers. No dysuria. She states she's also had diarrhea that is watery and martinez in color for the past 6 days, multiple times today. No nausea vomiting. She does have a history of diverticulitis and kidney stones. -: days(s) (2) Location: back (left flank) Severity scale (1-10): 7 Quality: constant Consistency: constant Improves with: none Associated Symptoms: other (diarrhea for 6 days) Treatments Prior to Arrival: none - Related Data Home Medications Medication Instructions Recorded Confirmed Sertraline [Zoloft] 100 mg PO DAILY 10/29/18 10/17/22 Diphenoxylate HCl/Atropine 2 tab PO AC-TID 10/17/22 10/17/22 [Lomotil 2.5-0.025 mg Tablet] Omeprazole [PriLOSEC] 20 mg PO AC-BID PRN 10/17/22 10/17/22 Previous Rx's Medication Instructions Recorded Amoxic-Pot Clav 875-125Mg 1 tab PO TID 5 Days #15 tab 10/17/22 [Augmentin 875-125] Allergies Allergy/AdvReac Type Severity Reaction Status Date / Time No Known Allergies Allergy Verified 10/17/22 11:12 Review of Systems ROS Statement: Those systems with pertinent positive or pertinent negative responses have been documented in the HPI. ROS Other: All systems not noted in ROS Statement are negative. Past Medical History Past Medical History: Fibromyalgia Additional Past Medical History / Comment(s): COLITIS, HX OF DIVERTICULITIS., HERNIATED DISCS WITH BACK PAIN, KIDNEY STONES. History of Any Multi-Drug Resistant Organisms: None Reported Past Surgical History: Appendectomy, Bladder Surgery, Bowel Resection, Breast Surgery, Hysterectomy, Orthopedic Surgery, Tonsillectomy Additional Past Surgical History / Comment(s): arthroscopy right knee, breast implants & then removed, barby. foot surg., Bowel Resection due to diverticulitis. Past Anesthesia/Blood Transfusion Reactions: Postoperative Nausea & Vomiting (PONV) Past Psychological History: Anxiety Smoking Status: Never smoker Past Alcohol Use History: Occasional Past Drug Use History: Marijuana - Past Family History Father Family Medical History: Cancer General Exam Limitations: no limitations General appearance: alert, in no apparent distress Head exam: Present: atraumatic Eye exam: Absent: scleral icterus, conjunctival injection, periorbital swelling Neck exam: Absent: meningismus Respiratory exam: Absent: respiratory distress, accessory muscle use Cardiovascular Exam: Present: regular rate GI/Abdominal exam: Present: soft. Absent: distended, tenderness, rigid Back exam: Present: tenderness, CVA tenderness (L), paraspinal tenderness (left lumbar). Absent: CVA tenderness (R), vertebral tenderness, rash noted Neurological exam: Present: alert, oriented X3, normal gait Psychiatric exam: Present: normal affect, normal mood Skin exam: Present: warm, dry, normal color. Absent: cyanosis, diaphoretic, petechiae, pallor Course Vital Signs 10/17/22 10/17/22 10/17/22 07:50 09:32 11:34 Temperature 98.2 F Pulse Rate 78 70 68 Respiratory 20 18 18 Rate Blood Pressure 136/86 118/84 137/81 O2 Sat by Pulse 99 97 96 Oximetry 10/17/22 11:40 Temperature 98.2 F Pulse Rate 68 Respiratory 18 Rate Blood Pressure 137/81 O2 Sat by Pulse 96 Oximetry Medical Decision Making - Medical Decision Making Patient denies any cough or fevers. White blood cell count 10.6. Urinalysis shows trace blood, trace leukocyte esterase and rare bacteria. CT abdomen and pelvis shows no acute abdominal or pelvic process. Nonobstructive left renal calculi. Colonic diverticulosis as well as evidence for acute diverticulitis. Patient was given IV fluids with Fentanyl, Dilaudid, Toradol and Norflex with minimal pain relief. She was given Augmentin for diverticulitis on CT. No nausea vomiting, no evidence leukocytosis. Afebrile. Vital signs are stable. She states that she still has some discomfort and she wants to go home. She was given a prescription for Augmentin directed to return to the emergency room with any new or concerning symptoms. She was discharged home with family. Case discussed with Dr. Joseph. Was pt. sent in by a medical professional or institution? @ -no Did you speak to anyone other than the patient for history? @ -no Did you review nursing and triage notes? @ -yes i agree Were old charts reviewed? @ -no Differential Diagnosis? Differential Back Pain: Strain, zoster, cauda equina syndrome, epidural abscess, vertebral osteomyelitis, discitis, fracture, subluxation, disc herniation, DJD, spinal stenosis, dissection, AAA, pancreatitis, peptic ulcer disease, pyelonephritis, kidney stone, this is not meant to be an all-inclusive list. Differential Abdominal Pain Women: diverticulosis, ischemic bowel, pancreatitis, hepatitis, UTI, gastroenteritis, AAA, incarcerated hernia, bowel obstruction, constipation, inflammatory bowel, hepatitis, peptic ulcer disease, splenic infarction, perforated viscus, vulvitis, kidney stone, this is not meant to be an all-inclusive list EKG interpreted by me (3pts min.)? @ -[none] X-rays interpreted by me (1pt min.)? @ -Yes x-ray shows no evidence of obstruction. No free air. Radiologist interpretation is limited exam due to overlying bowel contents without gross evidence of renal calculi. Multiple pelvic calcifications redemonstrated pelvic phleboliths CT interpreted by me (1pt min.)? @ no U/S interpreted by me (1pt. min.)? @ -[none] What testing was considered but not performed? (CT, X-rays, U/S, labs)? Why? @ no What meds were considered but not given? Why? @ -none Did you discuss the management of the patient with other professionals? @ -no Did you reconcile home meds? @ -no Was smoking cessation discussed for >3mins.? @ -[none] Was critical care preformed (if so, how long)? @ -no Were there social determinants of health that impacted care today? How? (Homelessness, low income, unemployed, alcoholism, drug addiction, transportation, low edu. Level, literacy, decrease access to med. care, long-term, rehab)? @ -no Was there de-escalation of care discussed even if they declined? (Discuss DNR or withdrawal of care, Hospice)? @ -no What co-morbidities impacted this encounter? (DM, HTN, Smoking, COPD, CAD, Cancer, CVA, Hep., AIDS, mental health diagnosis, sleep apnea, morbid obesity)? @ -Colitis, diverticulitis, fibromyalgia, appendectomyd Was patient admitted / discharged? @ discharged Undiagnosed new problem with uncertain prognosis? @ -[none] Drug Therapy requiring intensive monitoring for toxicity (Heparin, Nitro, Insulin, Cardizem)? @ -no Were any procedures done? @ -no Diagnosis/symptom? @ -Diverticulitis Acute, or Chronic, or Acute on Chronic? @ -Acute on chronic Uncomplicated (without systemic symptoms) or Complicated (systemic symptoms)? @ -Uncomplicated Side effects of treatment? @ -[none] Exacerbation, Progression, or Severe Exacerbation] @ -[no] Poses a threat to life or bodily function? @ -[no] - Lab Data Result diagrams: 10/17/22 08:17 10/17/22 08:17 Lab Results 10/17/22 10/17/22 10/17/22 Range/Units 08:17 08:17 09:29 WBC 10.6 (3.8-10.6) k/uL RBC 4.86 (3.80-5.40) m/uL Hgb 14.9 (11.4-16.0) gm/dL Hct 43.5 (34.0-46.0) % MCV 89.5 (80.0-100.0) fL MCH 30.7 (25.0-35.0) pg MCHC 34.3 (31.0-37.0) g/dL RDW 12.8 (11.5-15.5) % Plt Count 225 (150-450) k/uL MPV 7.1 Neutrophils % 74 % Lymphocytes % 15 % Monocytes % 7 % Eosinophils % 1 % Basophils % 1 % Neutrophils # 7.9 H (1.3-7.7) k/uL Lymphocytes # 1.6 (1.0-4.8) k/uL Monocytes # 0.7 (0-1.0) k/uL Eosinophils # 0.1 (0-0.7) k/uL Basophils # 0.1 (0-0.2) k/uL Sodium 139 (137-145) mmol/L Potassium 4.5 (3.5-5.1) mmol/L Chloride 110 H (98-107) mmol/L Carbon Dioxide 24 (22-30) mmol/L Anion Gap 5 mmol/L BUN 20 H (7-17) mg/dL Creatinine 0.63 (0.52-1.04) mg/dL Est GFR (CKD-EPI)AfAm >90 (>60 ml/min/1.73 sqM) Est GFR (CKD-EPI)NonAf >90 (>60 ml/min/1.73 sqM) Glucose 99 (74-99) mg/dL Calcium 9.2 (8.4-10.2) mg/dL Urine Color Yellow Urine Appearance Cloudy H (Clear) Urine pH 5.5 (5.0-8.0) Ur Specific [place] 1.028 (1.001-1.035) Urine Protein Trace H (Negative) Urine Glucose (UA) Negative (Negative) Urine Ketones Negative (Negative) Urine Blood Trace H (Negative) Urine Nitrite Negative (Negative) Urine Bilirubin Negative (Negative) Urine Urobilinogen <2.0 (<2.0) mg/dL Ur Leukocyte Esterase Trace H (Negative) Urine RBC 2 (0-5) /hpf Urine WBC 2 (0-5) /hpf Ur Squamous Epith Cells 16 H (0-4) /hpf Urine Bacteria Rare H (None) /hpf Urine Mucus Many H (None) /hpf Disposition Clinical Impression: Diverticulitis Disposition: HOME SELF-CARE Condition: Good Additional Instructions: Take antibiotics as prescribed. Increase your fluid intake. Follow-up with your primary care doctor next week. Return with any new or concerning symptoms including increased pain, fevers or persistent nausea vomiting. Prescriptions: Amoxic-Pot Clav 875-125Mg [Augmentin 875-125] 1 tab PO TID 5 Days #15 tab Is patient prescribed a controlled substance at d/c from ED?: No Referrals: Reggie Blanco MD [Primary Care Provider] - 1-2 days Time of Disposition: 11:23
[2022-10-17 08:32] LABS: Basophils # (A) 0.1 k/uL (0-0.2); Basophils % (A) 1 %; Eosinophils # (A) 0.1 k/uL (0-0.7); Eosinophils % (A) 1 %; HCT 43.5 % (34.0-46.0); HGB 14.9 gm/dL (11.4-16.0); Lymphocytes # (A) 1.6 k/uL (1.0-4.8); Lymphocytes % (A) 15 %; MCH 30.7 pg (25.0-35.0); MCHC 34.3 g/dL (31.0-37.0); MCV 89.5 fL (80.0-100.0); Mean Platelet Volume 7.1; Monocytes # (A) 0.7 k/uL (0-1.0); Monocytes % (A) 7 %; Neutrophils # (A) 7.9 k/uL (1.3-7.7); Neutrophils % (A) 74 %; Platelet Count 225 k/uL (150-450); RBC 4.86 m/uL (3.80-5.40); RDW 12.8 % (11.5-15.5); WBC 10.6 k/uL (3.8-10.6)
--- NOTE | 2022-10-17 08:43 | XR ---
EXAMINATION TYPE: XR KUB DATE OF EXAM: 10/17/2022 HISTORY: Kidney stone Comparison: KUB 09/13/2019. Technique: Single KUB is submitted for interpretation. Findings: Right renal calculi: There is limited visualization of the right kidney given overlying bowel content . No obvious nephrolithiasis is identified. Right ureteral calculi: None Visualized. Left renal calculi: There is limited visualization of the left kidney given overlying bowel content. No obvious nephrolithiasis is identified. Left ureteral calculi: None Visualized. Pelvic calcifications: Redemonstration of a pelvic calcifications felt to be pelvic phleboliths. Bowel gas pattern is unremarkable. Suture material in the pelvis. No free air. No mass effects. IMPRESSION: Limited examination due to overlying bowel content without gross evidence of renal calculi. Multiple pelvic calcifications redemonstrated infiltrate the pelvic phleboliths.
[2022-10-17 08:48] LABS: African American GFR (CKD) >90 (>60 ml/min/1.73 sqM); Anion Gap 5 mmol/L; Blood Urea Nitrogen 20 mg/dL (7-17); Calcium 9.2 mg/dL (8.4-10.2); Carbon Dioxide 24 mmol/L (22-30); Chloride 110 mmol/L (98-107); Glucose 99 mg/dL (74-99); Non-African American GFR(CKD) >90 (>60 ml/min/1.73 sqM); Sodium 139 mmol/L (137-145)
[2022-10-17 08:51] LABS: Potassium 4.5 mmol/L (3.5-5.1)
[2022-10-17] MEDS ORDERED: ORPHENADRINE 30 MG/ML 2 ML VIAL IM STA (09:28)
[2022-10-17 09:33] VITALS: RESP 18
[2022-10-17 09:40] LABS: Appearance,Urine Cloudy (Clear); Bacteria,Urine Rare /hpf; Bilirubin,Urine Negative (Negative); Blood,Urine Trace (Negative); Color,Urine Yellow; Glucose,Urine (UA) Negative (Negative); Ketones,Urine Negative (Negative); Leukocyte Esterase,Urine Trace (Negative); Mucus,Urine Many /hpf; Nitrite,Urine Negative (Negative); PH, Urine 5.5 (5.0-8.0); Protein,Urine Trace (Negative); RBC,Urine 2 /hpf (0-5); Specific Gravity,Urine 1.028 (1.001-1.035); Squamous Epithelial Cell,Urine 16 /hpf (0-4); Urobilinogen,Urine <2.0 mg/dL (<2.0); WBC,Urine 2 /hpf (0-5)
[2022-10-17] MEDS ORDERED: fentaNYL (PF) 50 MCG/ML 2 ML AMP IVP STA (09:50)
--- NOTE | 2022-10-17 10:34 | CT ---
EXAMINATION TYPE: CT abdomen pelvis w con CT DLP: 1089.2 mGycm, Automated exposure control for dose reduction was used. DATE OF EXAM: 10/17/2022 10:09 AM COMPARISON: KUB 10/17/2022, CT abdomen and pelvis 03/28/2019. CLINICAL INDICATION:Female, 67 years old with history of left flank pain, hx diverticulitis; Left chela e flank pain, hx diverticulitis TECHNIQUE: Standard CT of the abdomen and pelvis following the administration of 100 cc of Isovue 3 00 IV contrast material. Coronal and sagittal reformats were performed. FINDINGS: LOWER CHEST: Bilateral lower lobe reticular opacities. Mild cardiomegaly. No pericardial effusion. ABDOMEN LIVER: Unremarkable GALLBLADDER AND BILE DUCTS: Unremarkable. PANCREAS: Unremarkable. SPLEEN: Unremarkable. ADRENAL GLANDS: Unremarkable. KIDNEYS AND URETERS: No evidence of hydronephrosis. Nonobstructive left renal calculus measuring up t o 2 mm. The kidneys enhance symmetrically. PELVIS BLADDER: Under distended, limiting evaluation. Nondependent focus of gas within the urinary bladder. ABDOMEN & PELVIS STOMACH AND BOWEL: Small hiatal hernia, duodenum is unremarkable. Anastomosis at the sigmoid rectal j unction. Distal colonic diverticulosis without evidence for acute diverticulitis. The appendix is not definitively visualized however there is no significant inflammatory changes within the right lower quadrant. No evidence of bowel obstruction. PERITONEUM: No evidence of pneumoperitoneum or free fluid. VASCULATURE: Mild atherosclerotic calcifications are present throughout the abdominal aorta and its b ranches. No evidence of aortic aneurysm. Multiple pelvic phleboliths. MUSCULOSKELETAL: No acute osseous abnormalities LYMPH NODES: No gross evidence for lymphadenopathy. SOFT TISSUE/ABDOMINAL WALL: Tiny fat filled hiatal hernia. IMPRESSION: 1. No acute abdominal/pelvic process. 2. Nonobstructive left renal calculi. 3. Colonic diverticulosis as well as evidence for acute diverticulitis. 4. Single nondependent focus of gas within the underdistended urinary bladder. Correlate for recent i nstrumentation or cystitis. 5. Bilateral lower lobe reticular opacities favored to represent atelectasis however infiltrate is no t excluded.
[2022-10-17] MEDS ORDERED: AMOXIC-POT CLAV 875-125MG 1 EACH TAB PO STA (11:24)
[2022-10-17] MEDS ORDERED: HYDROmorphone 0.5 MG/0.5 ML SYRINGE IVP STA (11:27)
[2022-10-17 11:35] VITALS: BP 137/81; PULSE 68
== END 2022-10-17 11:41 | disposition home or self-care (01) ==
LOC: EC 07:43
DX: K57.30 Diverticulosis of large intestine without perforation or abscess without bleeding (principal); F41.9 Anxiety disorder, unspecified; F12.90 Cannabis use, unspecified, uncomplicated
CPT/HCPCS: 36415; 80048; 85025; 81001; 74018; 74177; 99284; 96372; 96374; 96375 ×2; 96361 ×2; J2360; J3010; J1885; J1170; Q9967

== ENCOUNTER 2022-10-22 09:31 | Emergency (ER) | payer BC, MEDICARE ==
[2022-10-22] MEDS ORDERED: MORPHINE SULFATE 4 MG/ML SYRINGE IVP STA (10:05)
[2022-10-22] MEDS ORDERED: KETOROLAC 15 MG/ML 1 ML VIAL IVP STA (10:05)
[2022-10-22 10:20] VITALS: RESP 18
--- NOTE | 2022-10-22 10:29 | ED ---
Back Pain HPI - General Chief Complaint: Back Pain/Injury Stated Complaint: back pain Time Seen by Provider: 10/22/22 09:53 Source: patient, RN notes reviewed Limitations: no limitations - History of Present Illness Initial Comments: This is a 67-year-old female who presents to the emergency department for left flank pain. Patient was evaluated here 5 days ago for the same symptoms and had blood work and a computed tomography scan of the abdomen and pelvis revealing no acute irregularities. She has a history of diverticulitis and kidney stones, but states that this feels different. Denies any pain radiating into the abdomen. She has no associated chest pain or shortness of breath. Also denies any nausea, vomiting, or changes in bowel habits. Denies any fevers, chills, sore throat, cough, dyspnea, chest pain, palpitations, abdominal pain, nausea, vomiting, diarrhea, or headaches. MD Complaint: back pain - Related Data Home Medications Medication Instructions Recorded Confirmed Sertraline [Zoloft] 100 mg PO DAILY 10/29/18 10/17/22 Diphenoxylate HCl/Atropine 2 tab PO AC-TID 10/17/22 10/17/22 [Lomotil 2.5-0.025 mg Tablet] Omeprazole [PriLOSEC] 20 mg PO AC-BID PRN 10/17/22 10/17/22 Previous Rx's Medication Instructions Recorded Amoxic-Pot Clav 875-125Mg 1 tab PO TID 5 Days #15 tab 10/17/22 [Augmentin 875-125] Cyclobenzaprine [Flexeril] 10 mg PO TID PRN #20 tab 10/22/22 HYDROcodone/APAP 5-325MG [[place] 1 tab PO Q6HR PRN 3 Days #12 tab 10/22/22 5-325] Allergies Allergy/AdvReac Type Severity Reaction Status Date / Time No Known Allergies Allergy Verified 10/22/22 09:50 Review of Systems ROS Statement: Those systems with pertinent positive or pertinent negative responses have been documented in the HPI. ROS Other: All systems not noted in ROS Statement are negative. Past Medical History Past Medical History: Fibromyalgia Additional Past Medical History / Comment(s): COLITIS, HX OF DIVERTICULITIS., HERNIATED DISCS WITH BACK PAIN, KIDNEY STONES. History of Any Multi-Drug Resistant Organisms: None Reported Past Surgical History: Appendectomy, Bladder Surgery, Bowel Resection, Breast Surgery, Hysterectomy, Orthopedic Surgery, Tonsillectomy Additional Past Surgical History / Comment(s): arthroscopy right knee, breast implants & then removed, barby. foot surg., Bowel Resection due to diverticulitis. Past Anesthesia/Blood Transfusion Reactions: Postoperative Nausea & Vomiting (PONV) Past Psychological History: Anxiety Smoking Status: Never smoker Past Alcohol Use History: Occasional Past Drug Use History: Marijuana - Past Family History Father Family Medical History: Cancer General Exam Limitations: no limitations General appearance: alert, in distress Head exam: Present: atraumatic, normocephalic, normal inspection Respiratory exam: Present: normal lung sounds bilaterally. Absent: respiratory distress, wheezes, rales, rhonchi, stridor Cardiovascular Exam: Present: regular rate, normal rhythm, normal heart sounds. Absent: systolic murmur, diastolic murmur, rubs, gallop, clicks GI/Abdominal exam: Present: soft, normal bowel sounds. Absent: distended, tenderness, guarding, rebound, rigid Back exam: Present: CVA tenderness (L) Neurological exam: Present: alert, oriented X3, CN II-XII intact Psychiatric exam: Present: normal affect, normal mood Skin exam: Present: warm, dry, intact, normal color. Absent: rash Course Vital Signs 10/22/22 10/22/22 10/22/22 09:48 10:15 11:29 Temperature 98.2 F Pulse Rate 88 80 65 Respiratory 20 18 18 Rate Blood Pressure 139/97 144/97 151/92 O2 Sat by Pulse 98 96 95 Oximetry 10/22/22 13:13 Temperature 98.1 F Pulse Rate 67 Respiratory 18 Rate Blood Pressure 141/87 O2 Sat by Pulse 96 Oximetry Medical Decision Making - Medical Decision Making This is a 67-year-old female who presents to the emergency department for left flank pain. Was pt. sent in by a medical professional or institution? @ -No Did you speak to anyone other than the patient for history? @ -No Did you review nursing and triage notes? @ -Yes, and I agree, it is accurate with regards to the patient's symptoms. Were old charts reviewed? @ -Imaging and lab work from 10/17. Differential Diagnosis? @ Differential Back Pain: Strain, zoster, cauda equina syndrome, epidural abscess, vertebral osteomyelitis, discitis, fracture, subluxation, disc herniation, DJD, spinal stenosis, dissection, AAA, pancreatitis, peptic ulcer disease, pyelonephritis, kidney stone, this is not meant to be an all-inclusive list. CT interpreted by me (1pt min.)? @ -Computed tomography scan of the abdomen and pelvis reveals no bowel wall thickening, free air, or ureteral calculus. What testing was considered but not performed? (CT, X-rays, U/S, labs)? Why? @ -None What meds were considered but not given? Why? @ -None Did you discuss the management of the patient with other professionals? @ -No Did you reconcile home meds? @ -No Was smoking cessation discussed for >3mins.? @ -No Was critical care preformed (if so, how long)? @ -No Were there social determinants of health that impacted care today? How? (Homelessness, low income, unemployed, alcoholism, drug addiction, transportation, low edu. Level, literacy, decrease access to med. care, detention, rehab)? @ -No Was there de-escalation of care discussed even if they declined? (Discuss DNR or withdrawal of care, Hospice)? @ -No What co-morbidities impacted this encounter? (DM, HTN, Smoking, COPD, CAD, Cancer, CVA, Hep., AIDS, mental health diagnosis, sleep apnea, morbid obesity)? @ -Morbid obesity, fibromyalgia Was patient admitted / discharged? @ -Discharged. Lab work obtained and found to be nonactionable. Computed tomography scan of the abdomen and pelvis repeated due to worsening symptoms and found to be negative as well. Symptoms were managed in the emergency department. Advised the patient that there is no clear cause for her symptoms at this time and they may be musculoskeletal in nature. Prescription for Flexeril and [place] provided with dosing instructions reviewed. Advised alternating with ibuprofen and Tylenol for pain relief and taking the [place] sparingly when her pain is the most severe. Advised that the [place] and Flexeril can be sedating and she should avoid driving or operating machinery when taking them. She should also avoid taking them at the same time, as this will further exacerbate the drowsiness effect. She will follow up with her PCP for reevaluation of symptoms. Undiagnosed new problem with uncertain prognosis? @ -None Drug Therapy requiring intensive monitoring for toxicity (Heparin, Nitro, Insulin, Cardizem)? @ -None Were any procedures done? @ -None Diagnosis/symptom? @ -Left flank pain Acute, or Chronic, or Acute on Chronic? @ -Acute Uncomplicated (without systemic symptoms) or Complicated (systemic symptoms)? @ -Uncomplicated Side effects of treatment? @ -None Exacerbation, Progression, or Severe Exacerbation] @ -Not applicable Poses a threat to life or bodily function? @ -No Return precautions reviewed in depth, the patient is instructed to return to the emergency department with any new, worsening, or concerning symptoms. Patient verbalized understanding. This case was discussed in detail with the attending ED physician, Dr. Joseph. Presentation, findings, and treatment plan discussed in detail as well. - Lab Data Result diagrams: 10/22/22 10:25 10/22/22 10:25 Lab Results 10/22/22 10/22/22 10/22/22 Range/Units 10:25 10:25 10:25 WBC 6.6 (3.8-10.6) k/uL RBC 5.02 (3.80-5.40) m/uL Hgb 14.9 (11.4-16.0) gm/dL Hct 44.6 (34.0-46.0) % MCV 88.8 (80.0-100.0) fL MCH 29.8 (25.0-35.0) pg MCHC 33.5 (31.0-37.0) g/dL RDW 12.8 (11.5-15.5) % Plt Count 236 (150-450) k/uL MPV 7.1 Neutrophils % 62 % Lymphocytes % 29 % Monocytes % 5 % Eosinophils % 1 % Basophils % 1 % Neutrophils # 4.1 (1.3-7.7) k/uL Lymphocytes # 1.9 (1.0-4.8) k/uL Monocytes # 0.4 (0-1.0) k/uL Eosinophils # 0.1 (0-0.7) k/uL Basophils # 0.1 (0-0.2) k/uL D-Dimer (<0.60) mg/L FEU Sodium 139 (137-145) mmol/L Potassium 4.0 (3.5-5.1) mmol/L Chloride 109 H (98-107) mmol/L Carbon Dioxide 23 (22-30) mmol/L Anion Gap 7 mmol/L BUN 14 (7-17) mg/dL Creatinine 0.61 (0.52-1.04) mg/dL Est GFR (CKD-EPI)AfAm >90 (>60 ml/min/1.73 sqM) Est GFR (CKD-EPI)NonAf >90 (>60 ml/min/1.73 sqM) Glucose 95 (74-99) mg/dL Plasma Lactic Acid Cameron (0.7-2.0) mmol/L Calcium 9.6 (8.4-10.2) mg/dL Total Bilirubin 0.5 (0.2-1.3) mg/dL AST 31 (14-36) U/L ALT 28 (4-34) U/L Alkaline Phosphatase 79 (38-126) U/L Troponin I (0.000-0.034) ng/mL C-Reactive Protein <0.5 (<1.0) mg/dL Total Protein 7.1 (6.3-8.2) g/dL Albumin 4.1 (3.5-5.0) g/dL Amylase 81 (30-110) U/L Lipase 63 (23-300) U/L Urine Color Yellow Urine Appearance Clear (Clear) Urine pH 5.5 (5.0-8.0) Ur Specific [place] 1.019 (1.001-1.035) Urine Protein Negative (Negative) Urine Glucose (UA) Negative (Negative) Urine Ketones Negative (Negative) Urine Blood Negative (Negative) Urine Nitrite Negative (Negative) Urine Bilirubin Negative (Negative) Urine Urobilinogen <2.0 (<2.0) mg/dL Ur Leukocyte Esterase Negative (Negative) 10/22/22 10/22/22 10/22/22 Range/Units 10:25 10:25 10:25 WBC (3.8-10.6) k/uL RBC (3.80-5.40) m/uL Hgb (11.4-16.0) gm/dL Hct (34.0-46.0) % MCV (80.0-100.0) fL MCH (25.0-35.0) pg MCHC (31.0-37.0) g/dL RDW (11.5-15.5) % Plt Count (150-450) k/uL MPV Neutrophils % % Lymphocytes % % Monocytes % % Eosinophils % % Basophils % % Neutrophils # (1.3-7.7) k/uL Lymphocytes # (1.0-4.8) k/uL Monocytes # (0-1.0) k/uL Eosinophils # (0-0.7) k/uL Basophils # (0-0.2) k/uL D-Dimer 0.42 (<0.60) mg/L FEU Sodium (137-145) mmol/L Potassium (3.5-5.1) mmol/L Chloride (98-107) mmol/L Carbon Dioxide (22-30) mmol/L Anion Gap mmol/L BUN (7-17) mg/dL Creatinine (0.52-1.04) mg/dL Est GFR (CKD-EPI)AfAm (>60 ml/min/1.73 sqM) Est GFR (CKD-EPI)NonAf (>60 ml/min/1.73 sqM) Glucose (74-99) mg/dL Plasma Lactic Acid Cameron 0.9 (0.7-2.0) mmol/L Calcium (8.4-10.2) mg/dL Total Bilirubin (0.2-1.3) mg/dL AST (14-36) U/L ALT (4-34) U/L Alkaline Phosphatase (38-126) U/L Troponin I <0.012 (0.000-0.034) ng/mL C-Reactive Protein (<1.0) mg/dL Total Protein (6.3-8.2) g/dL Albumin (3.5-5.0) g/dL Amylase (30-110) U/L Lipase (23-300) U/L Urine Color Urine Appearance (Clear) Urine pH (5.0-8.0) Ur Specific [place] (1.001-1.035) Urine Protein (Negative) Urine Glucose (UA) (Negative) Urine Ketones (Negative) Urine Blood (Negative) Urine Nitrite (Negative) Urine Bilirubin (Negative) Urine Urobilinogen (<2.0) mg/dL Ur Leukocyte Esterase (Negative) - Radiology Data Radiology results: report reviewed, image reviewed Disposition Clinical Impression: Left flank pain Disposition: HOME SELF-CARE Instructions (If sedation given, give patient instructions): Flank Pain (ED) Additional Instructions: Return to the emergency department with any new, worsening, or concerning symptoms. Alternate with ibuprofen and Tylenol for pain relief. Take the [place] sparingly when your pain is the most severe. Be aware that the [place] and Flexeril may be sedating and you should avoid driving or operating machinery when taking them. Follow up with your primary care provider in 1-2 days. Prescriptions: Cyclobenzaprine [Flexeril] 10 mg PO TID PRN #20 tab PRN Reason: Pain HYDROcodone/APAP 5-325MG [[place] 5-325] 1 tab PO Q6HR PRN 3 Days #12 tab PRN Reason: Pain Is patient prescribed a controlled substance at d/c from ED?: Yes When asked, does pt state using other controlled substances?: Yes If prescribed controlled substance>3 days was MAPS reviewed?: Prescribed <3 Days Referrals: Reggie Blanco MD [Primary Care Provider] - 1-2 days
[2022-10-22 10:50] LABS: Basophils # (A) 0.1 k/uL (0-0.2); Basophils % (A) 1 %; Eosinophils # (A) 0.1 k/uL (0-0.7); Eosinophils % (A) 1 %; HCT 44.6 % (34.0-46.0); HGB 14.9 gm/dL (11.4-16.0); Lymphocytes # (A) 1.9 k/uL (1.0-4.8); Lymphocytes % (A) 29 %; MCH 29.8 pg (25.0-35.0); MCHC 33.5 g/dL (31.0-37.0); MCV 88.8 fL (80.0-100.0); Mean Platelet Volume 7.1; Monocytes # (A) 0.4 k/uL (0-1.0); Monocytes % (A) 5 %; Neutrophils # (A) 4.1 k/uL (1.3-7.7); Neutrophils % (A) 62 %; Platelet Count 236 k/uL (150-450); RBC 5.02 m/uL (3.80-5.40); RDW 12.8 % (11.5-15.5); WBC 6.6 k/uL (3.8-10.6)
[2022-10-22 10:56] LABS: Appearance,Urine Clear (Clear); Bilirubin,Urine Negative (Negative); Blood,Urine Negative (Negative); Color,Urine Yellow; Glucose,Urine (UA) Negative (Negative); Ketones,Urine Negative (Negative); Leukocyte Esterase,Urine Negative (Negative); Nitrite,Urine Negative (Negative); PH, Urine 5.5 (5.0-8.0); Protein,Urine Negative (Negative); Specific Gravity,Urine 1.019 (1.001-1.035); Urobilinogen,Urine <2.0 mg/dL (<2.0)
[2022-10-22 11:15] LABS: ALT 28 U/L (4-34); AST 31 U/L (14-36); African American GFR (CKD) >90 (>60 ml/min/1.73 sqM); Albumin 4.1 g/dL (3.5-5.0); Alkaline Phosphatase 79 U/L (38-126); Amylase 81 U/L (30-110); Anion Gap 7 mmol/L; Blood Urea Nitrogen 14 mg/dL (7-17); C Reactive Protein <0.5 mg/dL (<1.0); Calcium 9.6 mg/dL (8.4-10.2); Carbon Dioxide 23 mmol/L (22-30); Chloride 109 mmol/L (98-107); Glucose 95 mg/dL (74-99); Lipase 63 U/L (23-300); Non-African American GFR(CKD) >90 (>60 ml/min/1.73 sqM); Sodium 139 mmol/L (137-145); Total Bilirubin 0.5 mg/dL (0.2-1.3); Total Protein 7.1 g/dL (6.3-8.2)
--- NOTE | 2022-10-22 12:09 | CT ---
EXAMINATION TYPE: CT abdomen pelvis w con CT DLP: 963 mGycm, Automated exposure control for dose reduction was used. DATE OF EXAM: 10/22/2022 11:47 AM COMPARISON: CT abdomen pelvis most recent from 10/17/2022 CLINICAL INDICATION:Female, 67 years old with history of Worsening left flank and abd pain; Left side d flank pain and abdominal pain. TECHNIQUE: Axial CT of the abdomen and pelvis. Sagittal and coronal reformats were created on a [employer] workstation. Contrast used:100ml mL of Isovue 300 with IV Contrast, Oral contrast used: without Oral Contrast FINDINGS: LOWER CHEST: Bilateral lower lobe reticular opacities. Mild cardiomegaly. No pericardial effusion. ABDOMEN LIVER: Unremarkable GALLBLADDER AND BILE DUCTS: Unremarkable. PANCREAS: Unremarkable. SPLEEN: Unremarkable. ADRENAL GLANDS: Unremarkable. KIDNEYS AND URETERS: No evidence of hydronephrosis. Nonobstructive left renal calculus measuring up t o 2 mm. The kidneys enhance symmetrically. PELVIS BLADDER: Under distended. ABDOMEN & PELVIS STOMACH AND BOWEL: Small hiatal hernia, duodenum is unremarkable. Anastomosis at the sigmoid rectal j unction. Distal colonic diverticulosis without evidence for acute diverticulitis. The appendix is not definitively visualized however there is no significant inflammatory changes within the right lower quadrant. No evidence of bowel obstruction. PERITONEUM: No evidence of pneumoperitoneum or free fluid. VASCULATURE: Mild atherosclerotic calcifications are present throughout the abdominal aorta and its b ranches. No evidence of aortic aneurysm. Multiple pelvic phleboliths. MUSCULOSKELETAL: No acute osseous abnormalities LYMPH NODES: No gross evidence for lymphadenopathy. SOFT TISSUE/ABDOMINAL WALL: Tiny fat filled hiatal hernia. IMPRESSION: Essentially unchanged exam from 10/17/2022. 1. Nonobstructive left renal calculi. 2. Colonic diverticulosis without diverticulitis. 3. Bilateral lower lobe reticular opacities favored to represent atelectasis however infiltrate is n ot excluded.
[2022-10-22 13:15] VITALS: BP 141/87; PULSE 67; TEMP 98.1
== END 2022-10-22 13:17 | disposition home or self-care (01) ==
LOC: EC 09:31
DX: R10.12 Left upper quadrant pain (principal); F12.90 Cannabis use, unspecified, uncomplicated; Z90.710 Acquired absence of both cervix and uterus; Z90.89 Acquired absence of other organs; Z87.442 Personal history of urinary calculi
CPT/HCPCS: 36415; 85379; 80053; 82150; 83605; 83690; 84484; 85025; 86140; 81003; 74177; 99284; 96374; 96375; J2270; J1885; Q9967

== ENCOUNTER → 2023-07-13 | Outpatient (CLI) | payer BC, MEDICARE ==
[2023-07-13 11:15] LABS: ALT 62 U/L (8-44); AST 39 U/L (13-35); Albumin 4.1 d/dL (3.8-4.9); Albumin/Globulin Ratio 1.71 Ratio (1.60-3.17); Alkaline Phosphatase 77 U/L (41-126); Bilirubin, Conjugated <0.20 mg/dL (0.20-0.40); Globulin 2.4 d/dL (1.6-3.3); Total Bilirubin <0.2 mg/dL (0.3-1.2); Total Protein 6.5 d/dL (6.2-8.2)
== END | disposition home or self-care (01) ==
LOC: LABWHC1 07:16
PROVIDERS: ATTEND Internal Medicine
DX: Z51.81 Encounter for therapeutic drug level monitoring (principal); J84.112 Idiopathic pulmonary fibrosis
CPT/HCPCS: 36415; 80076

== ENCOUNTER 2023-07-24 08:25 | Emergency (ER) | payer BC, MEDICARE ==
[2023-07-24 08:44] VITALS: TEMP 97.9
--- NOTE | 2023-07-24 08:47 | ED ---
Abdominal Pain HPI - General Chief Complaint: Abdominal Pain Stated Complaint: ABDO PAIN Time Seen by Provider: 07/24/23 08:45 Source: patient Mode of arrival: EMS Limitations: no limitations - History of Present Illness Initial Comments: 67-year-old female presents emergency Department with reported abdominal pain. States the pain is located in the left lower quadrant and wraps around to her left back. Pain started earlier this morning and was sudden onset. She has a history of diverticulitis however states that this does not feel similar. She h as associated dry heaving. No fevers. Denies any changes in her urination. Last bowel movement was yesterday. No alleviating, precipitating or modifying factors - Related Data Home Medications Medication Instructions Recorded Confirmed Sertraline [Zoloft] 100 mg PO DAILY 10/29/18 10/17/22 Diphenoxylate HCl/Atropine 2 tab PO AC-TID 10/17/22 10/17/22 [Lomotil 2.5-0.025 mg Tablet] Omeprazole [PriLOSEC] 20 mg PO AC-BID PRN 10/17/22 10/17/22 Previous Rx's Medication Instructions Recorded Amoxic-Pot Clav 875-125Mg 1 tab PO TID 5 Days #15 tab 10/17/22 [Augmentin 875-125] Cyclobenzaprine [Flexeril] 10 mg PO TID PRN #20 tab 10/22/22 HYDROcodone/APAP 5-325MG [[place] 1 tab PO Q6HR PRN 3 Days #12 tab 10/22/22 5-325] HYDROcodone/APAP 7.5-325MG [[place] 1 tab PO Q4HR PRN 3 Days #18 tab 07/24/23 7.5-325] Ketorolac [Toradol] 10 mg PO Q8HR #15 tab 07/24/23 Ondansetron Odt [Zofran Odt] 4 mg PO Q8HR PRN #20 tab 07/24/23 Tamsulosin [Flomax] 0.4 mg PO DAILY #7 cap 07/24/23 Allergies Allergy/AdvReac Type Severity Reaction Status Date / Time No Known Allergies Allergy Verified 07/24/23 08:38 Review of Systems ROS Statement: Those systems with pertinent positive or pertinent negative responses have been documented in the HPI. ROS Other: All systems not noted in ROS Statement are negative. Past Medical History Past Medical History: Fibromyalgia Additional Past Medical History / Comment(s): COLITIS, HX OF DIVERTICULITIS., HERNIATED DISCS WITH BACK PAIN, KIDNEY STONES. History of Any Multi-Drug Resistant Organisms: None Reported Past Surgical History: Appendectomy, Bladder Surgery, Bowel Resection, Breast Surgery, Hysterectomy, Orthopedic Surgery, Tonsillectomy Additional Past Surgical History / Comment(s): arthroscopy right knee, breast implants & then removed, barby. foot surg., Bowel Resection due to diverticulitis. Past Anesthesia/Blood Transfusion Reactions: Postoperative Nausea & Vomiting (PONV) Past Psychological History: Anxiety Smoking Status: Never smoker Past Alcohol Use History: Occasional Past Drug Use History: Marijuana - Past Family History Father Family Medical History: Cancer General Exam Limitations: no limitations General appearance: alert, in distress (in pain) Head exam: Present: atraumatic, normocephalic, normal inspection Eye exam: Present: normal appearance, PERRL, EOMI. Absent: scleral icterus, conjunctival injection, periorbital swelling ENT exam: Present: normal exam, mucous membranes moist Neck exam: Present: normal inspection. Absent: tenderness, meningismus, lymphadenopathy Respiratory exam: Present: normal lung sounds bilaterally. Absent: respiratory distress, wheezes, rales, rhonchi, stridor Cardiovascular Exam: Present: regular rate, normal rhythm, normal heart sounds. Absent: systolic murmur, diastolic murmur, rubs, gallop, clicks GI/Abdominal exam: Present: soft, normal bowel sounds. Absent: distended, tenderness, guarding, rebound, rigid Extremities exam: Present: normal inspection, full ROM, normal capillary refill. Absent: tenderness, pedal edema, joint swelling, calf tenderness Back exam: Present: normal inspection Neurological exam: Present: alert, oriented X3, CN II-XII intact Psychiatric exam: Present: normal affect, normal mood Skin exam: Present: warm, dry, intact, normal color. Absent: rash Course Vital Signs 07/24/23 07/24/23 07/24/23 08:35 12:14 12:37 Temperature 97.9 F Pulse Rate 75 73 72 Respiratory 22 18 16 Rate Blood Pressure 179/93 135/81 122/72 O2 Sat by Pulse 97 96 95 Oximetry Medical Decision Making - Medical Decision Making Was pt. sent in by a medical professional or institution (MARGARET Coates, MOTOR GENERATOR SET OPERATOR, urgent care, hospital, or jail...) When possible be specific @ -No Did you speak to anyone other than the patient for history (EMS, parent, family, police, friend...)? What history was obtained from this source @ -No Did you review nursing and triage notes (agree or disagree)? Why? @ -I reviewed and agree with nursing and triage notes Were old charts reviewed (outside hosp., previous admission, EMS record, old EKG, old radiological studies, urgent care reports/EKG's, jail records)? Report findings @ -No old charts were reviewed Differential Diagnosis (chest pain, altered mental status, abdominal pain women, abdominal pain men, vaginal bleeding, weakness, fever, dyspnea, syncope, headache, dizziness, GI bleed, back pain, seizure, CVA, palpatations, mental health, musculoskeletal)? @ -diverticulitis, appendicitis, cholecystitis, ureteralithiasis, pyelonephritis, uti, torsion EKG interpreted by me (3pts min.). @ -Not done X-rays interpreted by me (1pt min.). @ -None done CT interpreted by me (1pt min.). @ -yes and demonstrates ureteral stone U/S interpreted by me (1pt. min.). @ -None done What testing was considered but not performed or refused? (CT, X-rays, U/S, labs)? Why? @ -None What meds were considered but not given or refused? Why? @ -None Did you discuss the management of the patient with other professionals (professionals i.e. MARGARET Coates, MOTOR GENERATOR SET OPERATOR, lab, RT, psych nurse, secondary social studies teacher, spray rig operator, teacher, corporate banking officer, real estate branch manager)? Give summary @ -No Was smoking cessation discussed for >3mins.? @ -No Was critical care preformed (if so, how long)? @ -No Were there social determinants of health that impacted care today? How? (Homelessness, low income, unemployed, alcoholism, drug addiction, transportation, low edu. Level, literacy, decrease access to med. care, group home, rehab)? @ -No Was there de-escalation of care discussed even if they declined (Discuss DNR or withdrawal of care, Hospice)? DNR status @ -No What co-morbidities impacted this encounter? (DM, HTN, Smoking, COPD, CAD, Cancer, CVA, ARF, Chemo, Hep., AIDS, mental health diagnosis, sleep apnea, morbid obesity)? @ -None Was patient admitted / discharged? Hospital course, mention meds given and route, prescriptions, significant lab abnormalities, going to OR and other pertinent info. @ -Upon arrival patient was placed in room 16. Thorough history and physical exam was performed. Patient does have significant pain. IV is established laboratory studies are conducted. She does have an elevated lactic acid. She was given Dilaudid for pain control and Zofran for nausea. Patient sent for CT which demonstrates a ureteral stone. She is given Flomax and second dose pain medication. Reports to feeling a symptomatically at this time. She will be discharged home with [place], Toradol, Flomax. Instructed to follow-up with her doctor. Strain all of her urine. Increase fluid intake. Return for any new or worsening symptoms. Patient was agreeable and she was discharged in stable condition Undiagnosed new problem with uncertain prognosis? @ -yes Drug Therapy requiring intensive monitoring for toxicity (Heparin, Nitro, Ins ulin, Cardizem)? @ -No Were any procedures done? @ -No Diagnosis/symptom? @ -acute left flank pain, acute ureteral stone with hydronephrosis, lactic acidosis Acute, or Chronic, or Acute on Chronic? @ -acute Uncomplicated (without systemic symptoms) or Complicated (systemic symptoms)? @ -complicated Side effects of treatment? @ -No Exacerbation, Progression, or Severe Exacerbation? @ -No Poses a threat to life or bodily function? How? (Chest pain, [place], [place], pneumonia, PE, COPD, DKA, ARF, appy, cholecystitis, CVA, Diverticulitis, Homicidal, Suicidal, threat to staff... and all critical care pts) @ -No - Lab Data Result diagrams: 07/24/23 08:56 07/24/23 08:56 Lab Results 07/24/23 07/24/23 07/24/23 Range/Units 08:56 08:56 08:56 WBC 10.2 (3.8-10.6) k/uL RBC 4.77 (3.80-5.40) m/uL Hgb 15.5 (11.4-16.0) gm/dL Hct 45.0 (34.0-46.0) % MCV 94.5 (80.0-100.0) fL MCH 32.5 (25.0-35.0) pg MCHC 34.4 (31.0-37.0) g/dL RDW 12.2 (11.5-15.5) % Plt Count 232 (150-450) k/uL MPV 7.9 Neutrophils % 78 % Lymphocytes % 17 % Monocytes % 4 % Eosinophils % 1 % Basophils % 0 % Neutrophils # 7.9 H (1.3-7.7) k/uL Lymphocytes # 1.7 (1.0-4.8) k/uL Monocytes # 0.4 (0-1.0) k/uL Eosinophils # 0.1 (0-0.7) k/uL Basophils # 0.0 (0-0.2) k/uL Sodium 141 (137-145) mmol/L Potassium 3.5 (3.5-5.1) mmol/L Chloride 109 H (98-107) mmol/L Carbon Dioxide 18 L (22-30) mmol/L Anion Gap 14 mmol/L BUN 13 (7-17) mg/dL Creatinine 0.89 (0.52-1.04) mg/dL Est GFR (CKD-EPI)AfAm 78 (>60 ml/min/1.73 sqM) Est GFR (CKD-EPI)NonAf 67 (>60 ml/min/1.73 sqM) Glucose 149 H (74-99) mg/dL Lactic Ac Sepsis Rflx Plasma Lactic Acid Cameron 3.3 H* (0.7-2.0) mmol/L Calcium 9.7 (8.4-10.2) mg/dL Total Bilirubin 0.6 (0.2-1.3) mg/dL AST 46 H (14-36) U/L ALT 49 H (4-34) U/L Alkaline Phosphatase 82 (38-126) U/L Total Protein 7.6 (6.3-8.2) g/dL Albumin 4.2 (3.5-5.0) g/dL Lipase 65 (23-300) U/L Urine Color Urine Appearance (Clear) Urine pH (5.0-8.0) Ur Specific [place] (1.001-1.035) Urine Protein (Negative) Urine Glucose (UA) (Negative) Urine Ketones (Negative) Urine Blood (Negative) Urine Nitrite (Negative) Urine Bilirubin (Negative) Urine Urobilinogen (<2.0) mg/dL Ur Leukocyte Esterase (Negative) 07/24/23 07/24/23 Range/Units 09:19 10:10 WBC (3.8-10.6) k/uL RBC (3.80-5.40) m/uL Hgb (11.4-16.0) gm/dL Hct (34.0-46.0) % MCV (80.0-100.0) fL MCH (25.0-35.0) pg MCHC (31.0-37.0) g/dL RDW (11.5-15.5) % Plt Count (150-450) k/uL MPV Neutrophils % % Lymphocytes % % Monocytes % % Eosinophils % % Basophils % % Neutrophils # (1.3-7.7) k/uL Lymphocytes # (1.0-4.8) k/uL Monocytes # (0-1.0) k/uL Eosinophils # (0-0.7) k/uL Basophils # (0-0.2) k/uL Sodium (137-145) mmol/L Potassium (3.5-5.1) mmol/L Chloride (98-107) mmol/L Carbon Dioxide (22-30) mmol/L Anion Gap mmol/L BUN (7-17) mg/dL Creatinine (0.52-1.04) mg/dL Est GFR (CKD-EPI)AfAm (>60 ml/min/1.73 sqM) Est GFR (CKD-EPI)NonAf (>60 ml/min/1.73 sqM) Glucose (74-99) mg/dL Lactic Ac Sepsis Rflx Y Plasma Lactic Acid [place] (0.7-2.0) mmol/L Calcium (8.4-10.2) mg/dL Total Bilirubin (0.2-1.3) mg/dL AST (14-36) U/L ALT (4-34) U/L Alkaline Phosphatase (38-126) U/L Total Protein (6.3-8.2) g/dL Albumin (3.5-5.0) g/dL Lipase (23-300) U/L Urine Color Colorless Urine Appearance Clear (Clear) Urine pH 7.0 (5.0-8.0) Ur Specific [place] 1.009 (1.001-1.035) Urine Protein Negative (Negative) Urine Glucose (UA) 1+ H (Negative) Urine Ketones 1+ H (Negative) Urine Blood Negative (Negative) Urine Nitrite Negative (Negative) Urine Bilirubin Negative (Negative) Urine Urobilinogen <2.0 (<2.0) mg/dL Ur Leukocyte Esterase Negative (Negative) Disposition Clinical Impression: Abdominal pain, Ureteral stone with hydronephrosis Disposition: HOME SELF-CARE Condition: Stable Instructions (If sedation given, give patient instructions): Kidney Stones (ED) Additional Instructions: Please alternate taking the [place] with the Toradol every 4 hours. Take the Zofran as needed for nausea. Take the Flomax daily starting tomorrow. Strain all of your urine. Follow-up with your doctor and return for any new or worsening symptoms Prescriptions: Tamsulosin [Flomax] 0.4 mg PO DAILY #7 cap HYDROcodone/APAP 7.5-325MG [[place] 7.5-325] 1 tab PO Q4HR PRN 3 Days #18 tab PRN Reason: Pain Ketorolac [Toradol] 10 mg PO Q8HR #15 tab Ondansetron Odt [Zofran Odt] 4 mg PO Q8HR PRN #20 tab PRN Reason: Nausea Is patient prescribed a controlled substance at d/c from ED?: Yes When asked, does pt state using other controlled substances?: No If prescribed controlled substance>3 days was MAPS reviewed?: Prescribed <3 Days If opioid is for acute pain is fill amount 7 days or less?: Yes Referrals: None,Stated [REFERRING] - 1-2 days Percy Nunez MD [STAFF PHYSICIAN] - 1-2 days Time of Disposition: 12:01
[2023-07-24 09:06] LABS: Basophils % (A) 0 %; Eosinophils # (A) 0.1 k/uL (0-0.7); Eosinophils % (A) 1 %; HGB 15.5 gm/dL (11.4-16.0); Lymphocytes # (A) 1.7 k/uL (1.0-4.8); Lymphocytes % (A) 17 %; MCH 32.5 pg (25.0-35.0); MCHC 34.4 g/dL (31.0-37.0); MCV 94.5 fL (80.0-100.0); Mean Platelet Volume 7.9; Monocytes # (A) 0.4 k/uL (0-1.0); Monocytes % (A) 4 %; Neutrophils # (A) 7.9 k/uL (1.3-7.7); Neutrophils % (A) 78 %; Platelet Count 232 k/uL (150-450); RBC 4.77 m/uL (3.80-5.40); RDW 12.2 % (11.5-15.5); WBC 10.2 k/uL (3.8-10.6)
--- NOTE | 2023-07-24 09:11 | XR ---
EXAMINATION TYPE: XR KUB DATE OF EXAM: 07/24/2023 9:04 AM CLINICAL INDICATION:Female, 67 years old with history of abdominal pain; COMPARISON: 10/17/2022 TECHNIQUE: One radiographic view of the abdomen was obtained. FINDINGS: The bowel gas pattern is nonspecific without dilated loops of small or large bowel. There i s no evidence for organomegaly or pneumoperitoneum. The osseous structures are intact. No abnormal calcifications are present. Fecal material and gas are demonstrated throughout the colon and rectum. Mild scoliosis changes of the thoracic spine with a rotational component. Surgical suture projects o popeye the sacrum. Multiple pelvic phlebolith are present. IMPRESSION: 1. Nonspecific bowel gas pattern without radiographic evidence for acute process. 2. Scoliosis with a rotational component of the spine.
[2023-07-24 09:15] LABS: ALT 49 U/L (4-34); AST 46 U/L (14-36); African American GFR (CKD) 78 (>60 ml/min/1.73 sqM); Albumin 4.2 g/dL (3.5-5.0); Alkaline Phosphatase 82 U/L (38-126); Anion Gap 14 mmol/L; Blood Urea Nitrogen 13 mg/dL (7-17); Calcium 9.7 mg/dL (8.4-10.2); Carbon Dioxide 18 mmol/L (22-30); Chloride 109 mmol/L (98-107); Glucose 149 mg/dL (74-99); Lipase 65 U/L (23-300); Non-African American GFR(CKD) 67 (>60 ml/min/1.73 sqM); Potassium 3.5 mmol/L (3.5-5.1); Sodium 141 mmol/L (137-145); Total Bilirubin 0.6 mg/dL (0.2-1.3); Total Protein 7.6 g/dL (6.3-8.2)
[2023-07-24] MEDS ORDERED: SODIUM CHLORIDE 0.9% 1,000 ML IV ONE (09:26)
[2023-07-24] MEDS ORDERED: ONDANSETRON 4 MG/2 ML VIAL IVP STA (09:49)
[2023-07-24] MEDS ORDERED: HYDROmorphone 1 MG/ML 1 ML SYRINGE IVP STA ×2 (09:49→11:47)
[2023-07-24 10:42] LABS: Appearance,Urine Clear (Clear); Bilirubin,Urine Negative (Negative); Blood,Urine Negative (Negative); Color,Urine Colorless; Glucose,Urine (UA) 1+ (Negative); Ketones,Urine 1+ (Negative); Leukocyte Esterase,Urine Negative (Negative); Nitrite,Urine Negative (Negative); Protein,Urine Negative (Negative); Specific Gravity,Urine 1.009 (1.001-1.035); Urobilinogen,Urine <2.0 mg/dL (<2.0)
--- NOTE | 2023-07-24 11:25 | CT ---
EXAMINATION TYPE: CT abdomen pelvis w con CT DLP: 809.4 mGycm, Automated exposure control for dose reduction was used. DATE OF EXAM: 07/24/2023 11:15 AM COMPARISON: CT abdomen pelvis most recent from 10/14/2022, KUB radiograph 06/27/2023 . CLINICAL INDICATION:Female, 67 years old with history of abd pain, hx bowel resection; Abdominal pain , hx bowel resection, colitis, diverticulitis. TECHNIQUE: Standard CT of the abdomen and pelvis following the administration of 100 cc of Isovue 3 00 IV contrast material. Coronal and sagittal reformats were performed. FINDINGS: LOWER CHEST: Posterior dependent subsegmental atelectasis is noted. ABDOMEN LIVER: Unremarkable GALLBLADDER AND BILE DUCTS: Unremarkable. PANCREAS: Unremarkable. SPLEEN: Unremarkable. ADRENAL GLANDS: Unremarkable. KIDNEYS AND URETERS: Mild left hydroureteronephrosis with an obstructing urinary calculus within the proximal left ureter just past the ureteropelvic junction. There is surrounding fat stranding. Additi onal nonobstructive left renal calculi measuring up to 3 mm. No right renal calculi definitively iden tified. Contrast is demonstrated within both collecting systems on the delayed phase. PELVIS BLADDER: Incompletely distended but grossly unremarkable. REPRODUCTIVE: Unremarkable. ABDOMEN & PELVIS STOMACH AND BOWEL: Small hiatal hernia, duodenum is unremarkable. Post surgical changes with anastomo sis in the region of the rectum. Distal colonic diverticulosis without evidence for acute diverticuli tis. No evidence of bowel obstruction. PERITONEUM: No evidence of pneumoperitoneum or free fluid. VASCULATURE: Moderate atherosclerotic calcifications are present throughout the abdominal aorta and i ts branches. No evidence of aortic aneurysm. Pelvic phleboliths. MUSCULOSKELETAL: No acute osseous abnormalities LYMPH NODES: No gross evidence for lymphadenopathy. SOFT TISSUE/ABDOMINAL WALL: Unremarkable IMPRESSION: 1. Mild left hydroureteronephrosis with an obstructive 3 mm calculus within the left proximal ureter . Additional nonobstructive left renal calculi. 2. Colonic diverticulosis without evidence for acute diverticulitis.
[2023-07-24] MEDS ORDERED: TAMSULOSIN 0.4 MG CAP.ER.24H PO STA (11:47)
[2023-07-24 12:51] VITALS: BP 122/72; PULSE 72; RESP 16
== END 2023-07-24 12:41 | disposition home or self-care (01) ==
LOC: EC 08:25
DX: N13.2 Hydronephrosis with renal and ureteral calculous obstruction (principal); F41.9 Anxiety disorder, unspecified; F12.90 Cannabis use, unspecified, uncomplicated; Z79.899 Other long term (current) drug therapy
CPT/HCPCS: 36415; 80053; 83605; 83690; 85025; 81003; 74018; 74177; 99285; 96374; 96375; 96376; 96361 ×3; J2405; J1170; Q9967

== ENCOUNTER → 2024-08-19 | Outpatient (CLI) | payer MEDICARE, BC ==
--- NOTE | 2024-08-19 09:22 | CT ---
EXAMINATION TYPE: CT chest wo con DATE OF EXAM: 08/19/2024 COMPARISON: 08/22/2022 CLINICAL INDICATION: Female, 68 years old with history of J84.112 IDIOPATHIC PULMONARY FIBROSIS; PHH, idiopathic pulmonary fibrosis TECHNIQUE: CT scan of the thorax is performed without IV contrast. CT DLP: [address] CTDI: mGy Automated exposure control for dose reduction was used. FINDINGS: LUNGS: Interlobular septal thickening with areas of bilateral consolidation. Emphysematous changes ar e seen. Peribronchial thickening in the lower lobes can be associated reactive airway disease. Bibasi lar subsegmental consolidation. There are multiple nodules in the left lower lobe superior segment adjacent to the fissure the larges t measuring 6 mm. There are additional scattered 2 to 3 mm subpleural and parenchymal pulmonary micro nodules which have a benign appearance.. MEDIASTINUM: Lack of IV contrast is noted to limit evaluation for mediastinal and especially hilar ad enopathy. There are no definitive greater than 1 cm hilar or mediastinal lymph nodes. The heart is en larged. Mild atherosclerotic change aorta. Trace of pericardial fluid. Mild coronary artery calcifica tion. OTHER: Left hydronephrosis noted. Punctate right renal calculi. Small hiatal hernia. Tiny hypodensity within the left kidney is incompletely evaluated by noncontrast CT. IMPRESSION: 1. COPD with moderate changes of pulmonary fibrosis stable from prior exam most marked involving the lower lobes. 2. Bilateral pulmonary nodules largest measuring 6 mm are stable recommend 12 month follow-up CT scan according to Fleischner Society guidelines. 3. Incidental note made of left hydronephrosis. 4. Punctate nonobstructing right renal calculi an additional punctate left renal calculi. Hypodense a sadiq left kidney too small to characterize and incompletely evaluated by noncontrast CT.. Follow-up recommendations for incidental pulmonary nodules are per Fleischner?s [place] [employer] or [employer]. [facility], , 08/19/2024 9:19 AM
== END | disposition home or self-care (01) ==
LOC: RADCTMAIN 07:52
PROVIDERS: ATTEND Internal Medicine Critical Care Medicine
DX: J84.112 Idiopathic pulmonary fibrosis (principal); J44.9 Chronic obstructive pulmonary disease, unspecified; R91.8 Other nonspecific abnormal finding of lung field; N13.2 Hydronephrosis with renal and ureteral calculous obstruction
CPT/HCPCS: 71250

== ENCOUNTER 2024-09-17 09:54 | Day surgery (SDC) | payer MEDICARE, BC ==
[2024-09-13 11:10] VITALS: BMI 29.2
[2024-09-17] MEDS: IV FLUID CONTINUATION 1,000 ML IV ONE (10:09)
[2024-09-17] MEDS ORDERED: LIDOCAINE 1% (10MG/ML) FOR IV START INTRADERMA PRN (10:14)
[2024-09-17] MEDS: LACTATED RINGERS 1,000 ML IV SCH (10:21)
[2024-09-17] MEDS: ONDANSETRON 4 MG/2 ML VIAL IVP STA (10:23)
[2024-09-17 10:28] VITALS: TEMP 98
[2024-09-17] MEDS ORDERED: PROPOFOL 10 MG/ML 20 ML VIAL IV ONE (10:41)
--- NOTE | 2024-09-17 10:54 | P.PCN ---
Date of Procedure: 09/17/24 Procedure(s) Performed: BRIEF HISTORY: Patient is a 68-year-old pleasant white female scheduled for an elective colonoscopy as a part of evaluation of chronic diarrhea of several months duration. She was diagnosed with lymphocytic colitis in 2019 and at that time was treated with steroids and responded well. Lately has been having worsening diarrhea with 7-8 loose watery bowel movements daily. Was given a trial of Entocort in October of this year with no help. She is scheduled for colonoscopy to evaluate further. PROCEDURE PERFORMED: Colonoscopy random biopsies. PREOPERATIVE DIAGNOSIS: Chronic diarrhea. IV sedation per Anesthesia. PROCEDURE: After informed consent was obtained, the patient, was brought into the endoscopy unit. IV sedation was administered by Anesthesia under continuous monitoring. Digital rectal examination was normal. Initially the Olympus CF-160 flexible video colonoscope was then inserted in the rectum, gradually advanced into the cecum without any difficulty. Careful examination was performed as the scope was gradually being withdrawn. Ileocecal valve and the appendiceal orifice were visualized and appeared normal. Prep was excellent. Ileum was intubated and 5 cm visualized and appeared normal. Mucosa of the cecum, ascending colon, transverse colon, descending colon, sigmoid colon, and rectum appeared normal. Biopsies were done from the ascending and descending colon rule out microscopic/collagenous colitis. Moderate sigmoid diverticulosis. Retroflexion was performed in the rectum and no lesions were seen. The patient tolerated the procedure well. IMPRESSION: Normal-appearing colon from rectum to cecum no evidence of colitis or colorectal neoplasia. Moderate moderate sigmoid diverticulosis. RECOMMENDATIONS: Findings of this examination were discussed with the patient as well as her family. She was advised to follow-up with the biopsy results and she will be seen in the office in 2 to 3 weeks..
[2024-09-17 11:00] VITALS: PULSE 78
[2024-09-17 11:15] VITALS: BP 105/67; RESP 16
== END 2024-09-17 11:35 | disposition home or self-care (01) ==
LOC: ORWHC2ENDO 09:54
PROVIDERS: ATTEND Internal Medicine Gastroenterology
DX: K52.832 Lymphocytic colitis (principal); K57.30 Diverticulosis of large intestine without perforation or abscess without bleeding; F41.9 Anxiety disorder, unspecified; M79.7 Fibromyalgia; M54.50 Low back pain, unspecified; N20.0 Calculus of kidney; Z87.891 Personal history of nicotine dependence; Z79.899 Other long term (current) drug therapy
CPT/HCPCS: 88305; 45380; J2405; J2704

== ENCOUNTER 2025-02-23 19:38 | Outpatient (CLI) | payer MEDICARE, BC ==
--- NOTE | 2025-03-03 20:32 | P.PCN ---
Date of Procedure: 02/23/25 Operative Findings: Polysomnography report History This is a 69-year-old female patient known history of IPF. The patient was seen recently by neurology and she was advised to undergo a polysomnography. She has episodes of night terrors, nightmares that are quite disturbing and overnight sweating in addition to sleep fragmentation and snoring and daytime fatigue and sleepiness. She goes to bed at around 9:30 PM and she gets out of bed at 6 AM in the morning. Previous home sleep study indicated mild obstructive sleep apnea with an AHI of 9. Repeat polysomnography was requested. Physical findings The height is 5 feet and 1 inch. Weight is 162 pounds with a BMI of 30.6 Technical description The patient was studied using a standard complex polysomnography protocol that included recording of the Lead II EKG, Central, occipital and frontal EEG, right and left outer canthus EOG, submental EMG, right and left anterior tibialis EMG, respiratory airflow by thermocouple and or pressure/flow transducer, respiratory efforts by abdominal and thoracic PVDF belts, oxygen saturation by cable oximetr y. Position by observation synchronized the PSG. Equipment used: [employer]. Sleep architecture The total recording duration was 462.0 minutes. The total sleep time was 222.5 minutes. The wake after sleep onset time was 145.5 minutes. The overall sleep efficiency was 48.2%. Latency to sleep onset was 93.5 minutes and the latency to REM sleep was 340 minutes. The sleep architecture was characterized by 5.8% stage I, 81.8% stage II, 0% stage III and a total of 12.4% REM sleep. The total arousal index was 7. Respiratory analysis The respiratory analysis showed a total of 34 obstructive events of which 7 were obstructive apneas, 0 were mixed apneas and 27 were obstructive hypopneas. The resulting AHI was 9.2 consistent with mild obstructive sleep apnea. No central apneas were noted. The respiratory arousal index was 2.7. Noted the obstructive respiratory events were essentially in the form of hypopneas, occurring predominantly during REM sleep. AHI during REM was 74.2. Disease was also slightly worse in the supine body position. Oxygenation analysis The baseline pulse ox was 92% while awake. Lowest oxygen saturation was 82% and the patient spent approximately 10 minutes of the sleep time below pulse ox of 90% this accounted for 2.1% of the overall recording duration. Arousal events The patient had total of 26 arousals with an arousal index of 7.0. The resp iratory arousal index was 2.7 Limb movement summary No significant PLM with identified Cardiac summary Average heart rate was 61 with a minimum heart rate of 57 and a maximum heart of 65 Assessment Mild obstructive sleep apnea with an AHI of 9.0. This is consistent with mild disease and the patient's disease severity has not progressed and is equivalent and comparable to the previous home sleep study that was conducted on this patient a few years back. Noted the patient's disease is REM specific. Mild nocturnal oxygen desaturations with a minimum pulse ox of 82%. Poor sleep efficiency calculated to be at 48.2%. Abnormal sleep architecture with over representation of stage II sleep No periodic limb movement activity Coughing during the study No parasomnias noted History of nightmares and night terrors Idiopathic pulmonary fibrosis Plan This remains a case of mild nonspecific obstructive sleep apnea. No parasomnias noted. No significant nocturnal oxygen desaturation or periodic limb movement activity. Overall sleep efficiency was poor and the patient had a delayed sleep onset with a poor sleep maintenance. This is probably due to her comorbidities. Will treat nightmares separately. Complete the neurowork-up and an MRI of the brain has been ordered. No immediate need for CPAP therapy and the results were discussed with the patient in the office during her upcoming visit. Encourage weight loss Maintain good sleep hygiene measures Maintain regular sleep schedule Will continue to follow
== END 2025-02-24 05:15 | disposition home or self-care (01) ==
LOC: 3 N SLEEP 19:38
PROVIDERS: ATTEND Internal Medicine Critical Care Medicine
DX: G47.33 Obstructive sleep apnea (adult) (pediatric) (principal); R05.9 Cough, unspecified; J84.112 Idiopathic pulmonary fibrosis; Z86.59 Personal history of other mental and behavioral disorders; Z87.891 Personal history of nicotine dependence
CPT/HCPCS: 95810

== ENCOUNTER → 2025-03-02 | Outpatient (CLI) | payer MEDICARE, BC ==
--- NOTE | 2025-03-06 21:37 | MR ---
EXAMINATION TYPE: MR brain wo/w con DATE OF EXAM: 03/02/2025 8:10 AM COMPARISON: None. CLINICAL INDICATION: Female, 69 years old with history of R41.3 OTHER AMNESIA G47.9 SLEEP DISORDER, N ight Tremors and forgetfulness TECHNIQUE: Multiplanar, multiecho imaging on a 3.0 Shira magnet is performed through the brain. Stud y is performed within 24 hours of arrival to the hospital.Multiplanar, multiecho imaging on a 3.0 Shonna la magnet is performed through the knee. IV Contrast: 7ml mL Gadobutrol (None, if empty) FINDINGS: The craniovertebral junction is normal. The pituitary is normal. Diffusion-weighted imaging is performed. No abnormal hyperintensity is present to suggest an acute i ntracranial infarct or acute ischemic change. There are scattered punctate areas of hyperintensity on T2 and Inversion Recovery weighted sequences which are non-specific but can be related to microvascular ischemic changes. Ventricles and sulci are appropriate for the patient age. No abnormal enhancement is evident. IMPRESSION: 1. Scattered small areas of hyperintensity on T2 and inversion weighted sequences likely on the basis of chronic white matter ischemic change [facility], , 03/06/2025 9:35 PM
== END | disposition home or self-care (01) ==
LOC: RADMRIMAIN 07:09
PROVIDERS: ATTEND Psychiatry & Neurology Neurology
DX: R41.3 Other amnesia (principal); G47.9 Sleep disorder, unspecified
CPT/HCPCS: 70553; A9585